=== PATIENT | female | born 1980 | race Caucasian/White ===

== ENCOUNTER 2017-10-08 10:53 | Outpatient (CLI) | payer OTHER ==
--- NOTE | 2017-10-08 11:11 | MMO ---
LEFT UNILATERAL DIAGNOSTIC MAMMOGRAM: HISTORY: Post biopsy clip placement evaluation. FINDINGS: Biopsy was performed by Dr. Williamson in his office and a clip was deployed. The clip is located in th e upper outer left breast. The mass itself is somewhat difficult to identify on this exam. IMPRESSION: Successful clip deployment. POS: [facility]
== END 2017-10-08 10:54 | disposition home or self-care (01) ==
LOC: MAMMO 10:53
PROVIDERS: ATTEND Specialist
DX: N63.20 Unspecified lump in the left breast, unspecified quadrant (principal)
CPT/HCPCS: G0206-LT

== ENCOUNTER 2017-10-21 07:22 | Day surgery (SDC) | payer SELFPAY ==
[2017-10-21] MEDS ORDERED: CEFAZOLIN/Water 2 GM/20 ML SYRINGE ONE (07:54)
[2017-10-21] MEDS ORDERED: Ketorolac Tromethamine 30 MG/ML VIAL ONE (07:54)
[2017-10-21 08:17] LABS: #Eosinphils 0.2 thou/uL (0.0-0.7); #Lymphocytes 1.9 thou/uL (1.20-3.40); #Monocytes 0.4 thou/uL (0.11-0.59); #Neutrophils 5.8 thou/uL (1.40-6.50); %Basophils 0.2 % (0.0-1.0); %Eosinophils 2.4 % (0.0-10.0); %Lymphocytes 22.4 % (21.0-51.0); %Monocytes 4.9 % (0.0-10.0); Hematocrit 37.8 % (36.0-47.0); Mean Platelet Volume 6.8 fL (7.4-10.4); Red Blood Cell (RBC) Count 4.36 mill/uL (4.20-5.40); White Blood Cell (WBC) Count 8.3 thou/uL (4.8-10.8)
[2017-10-21 08:36] LABS: Anion Gap 11 mmol/L (10-20); BUN (Urea Nitrogen) 13 mg/dL (7.0-18.7); Calc. Creatinine Clearance 0 mL/min (70-130); Calcium 9.4 mg/dL (7.8-10.44); Carbon Dioxide 20 mmol/L (22-29); Chloride 110 mmol/L (98-107); Estimated GFR-MDRD 88
[2017-10-21] MEDS ORDERED: Lidocaine 1% (PF) 30 ML VIAL ONE (08:54)
[2017-10-21] MEDS ORDERED: Bupivacaine/Epinephrine 0.25% 30 ML VIAL ONE (08:54)
[2017-10-21] MEDS ORDERED: Midazolam HCl 2 mg/2 ml Vial ONE (08:59)
[2017-10-21] MEDS ORDERED: Fentanyl 100 MCG/2 ML VIAL ONE (09:02)
[2017-10-21] MEDS ORDERED: Propofol 1,000 MG/100 ML VIAL IV ONE (09:02)
--- NOTE | 2017-10-21 12:26 | RAD ---
FRONTAL VIEW CHEST: Comparison: 08-18-16 Indication: Mediport placement evaluation. FINDINGS: Right sided chest port is present without evidence of post procedural pneumothorax. Tip of the cathet er overlies the region of SVC. Lungs are clear. Cardiac silhouette is accentuated with portable techn ique. IMPRESSION: Right chest port present, without obvious post procedure pneumothorax. POS: [facility]
--- NOTE | 2017-10-22 09:50 | OP ---
DATE OF PROCEDURE: 10/21/2017 PREOPERATIVE DIAGNOSIS: Left breast cancer. POSTOPERATIVE DIAGNOSIS: Left breast cancer. OPERATION PERFORMED: Placement of regular size power compatible right subclavian MediPort. SURGEON: Andrew Williamson M.D. ANESTHESIA: Total intravenous anesthesia with local using 0.25% Marcaine with epinephrine. INDICATIONS: The patient is a 37-year-old obese white female. She was recently diagnosed with a lar ge left breast cancer that appears to be metastatic to axillary lymph nodes. I have recommended Medi Port placement for chemotherapy administration. DESCRIPTION OF OPERATION: Informed consent was obtained, the patient taken to the operating room whe re total intravenous anesthesia was obtained with the patient in supine position. Right chest was pr epped with ChloraPrep, draped in sterile fashion. Local anesthetic was infiltrated and a large gauge needle was passed under the clavicle. Guidewire was passed through the needle and this was fluorosc opically confirmed to enter the superior vena cava. Additional local anesthetic was infiltrated. Th e subcutaneous pocket was dissected and introducer dilator was passed over the guidewire with fluoros copic guidance. Catheter was passed through the introducer and introducer removed in the usual peel- apart fashion. Catheter was trimmed to appropriate length such that the tip was at the atrial caval junction and the catheter was secured to the locking hub of the MediPort. The port was secured to th e pectoral fascia with 2 interrupted sutures of 3-0 Prolene. The wound was closed in layers with 3-0 and 4-0 Monocryl. Dermabond was placed externally. The port was accessed and then flushed with hep arinized saline. There were no complications. The patient tolerated the procedure well and was take n to recovery in stable condition. Post-procedure x-ray is documents good position of the port and c atheter.
== END 2017-10-21 11:12 | disposition home or self-care (01) ==
LOC: SDC 07:22
PROVIDERS: ATTEND Specialist
PROC: 0JH60WZ Insertion of Totally Implantable Vascular Access Device into Chest Subcutaneous Tissue and Fascia, Open Approach (ICD-10-PCS; principal; 2017-10-21)
DX: C50.912 Malignant neoplasm of unspecified site of left female breast (principal); J30.2 Other seasonal allergic rhinitis; I10 Essential (primary) hypertension; E07.9 Disorder of thyroid, unspecified; Z98.51 Tubal ligation status; Z90.49 Acquired absence of other specified parts of digestive tract; Z98.890 Other specified postprocedural states
CPT/HCPCS: 36415; 71010; 80048; 85025; 93005; 93010; C1788; J0131; J1642; J1885; J2001; J2250; J2704; J3010

== ENCOUNTER 2017-10-27 08:26 | Outpatient (CLI) | payer MEDICAID ==
--- NOTE | 2017-10-27 09:25 | CT ---
CT CHEST WITH IV CONTRAST CT ABDOMEN AND PELVIS WITH IV CONTRAST: Technique: Multiple axial tomograms were obtained through the chest, abdomen, and pelvis with IV enha ncement. Oral contrast was administered. History: Breast cancer. Comparison: CT angio chest 09-08-16 FINDINGS: CT CHEST: The lung adam are clear. No evidence of infiltrate. No evidence of pulmonary nodule. Mediastinum is unremarkable. No adenopathy. Asymmetric parenchymal opacity in the left breast is seen which probably relates to patient's history of lumpectomy and radiation. There is mild left breast skin thickening which may be post radiation. There is left axillary adenopathy noted. There is one axillary lymph node measuring up to 2.0 cm. The re are several other lymph nodes present with another measuring 1.2 cm. No evidence of right axillary adenopathy. Bony thorax appears unremarkable. No evidence of osseous metastasis. IMPRESSION: 1. Left axillary adenopathy. Skin thickening over the left breast may represent post radiation change . Left breast parenchymal asymmetric is probably post-operative. Recommend clinical correlation regar ding these left breast and axillary findings. 2. CT Chest otherwise unremarkable. CT ABDOMEN AND PELVIS: Liver, spleen, and pancreas unremarkable. Adrenal glands are normal. Kidneys are unremarkable. Stomac h, duodenum, and small bowel appear unremarkable. Appendix normal. Colon unremarkable. Nonspecific periaortic lymph nodes. There is a 1.0 cm lymph node to the left of the aorta in the mida bdomen and there are other tiny subcentimeter periaortic nodes. Images through the pelvis show unremarkable uterus and adnexa. Small left ovarian cyst measures appro ximately 1.6 cm. There is a right ovarian cyst measuring 2.2 cm. Osseous structures are unremarkable. IMPRESSION: 1. Small bilateral ovarian cysts. 2. Scattered small paraaortic lymph nodes are nonspecific. No evidence of adenopathy. POS: [facility]
--- NOTE | 2017-10-27 15:34 | NM ---
WHOLE BODY BONE SCAN: INDICATION: History of breast cancer. RADIOPHARMACUEITCAL: 33 mCi Technetium 99m MDP IV. FINDINGS: There is some mild degenerative activity involving the shoulders, sternoclavicular joints, angle of L ouis and feet. No suspicious radiotracer accumulation is seen to suggest the presence of osseous metastatic disease. IMPRESSION: No scintigraphic evidence of osteoblastic metastatic disease. POS: [facility]
== END 2017-10-27 08:27 | disposition home or self-care (01) ==
LOC: CT 08:26
PROVIDERS: ATTEND Internal Medicine Medical Oncology
DX: C50.412 Malignant neoplasm of upper-outer quadrant of left female breast (principal); N83.202 Unspecified ovarian cyst, left side; N83.201 Unspecified ovarian cyst, right side; R59.0 Localized enlarged lymph nodes
CPT/HCPCS: 71260; 74177; 78306; A9503

== ENCOUNTER 2017-11-03 13:44 | Outpatient (CLI) | payer MEDICAID | END 2017-11-03 13:45 | disposition home or self-care (01) | LOC: ULT 13:44 | PROVIDERS: ATTEND Internal Medicine Medical Oncology | DX: Z51.11 Encounter for antineoplastic chemotherapy (principal); C50.412 Malignant neoplasm of upper-outer quadrant of left female breast; I08.1 Rheumatic disorders of both mitral and tricuspid valves; Z79.899 Other long term (current) drug therapy | CPT/HCPCS: 93306 ==

== ENCOUNTER 2017-11-24 10:54 | Day surgery (SDC) | payer MEDICAID ==
[2017-11-24] MEDS ORDERED: Dexamethasone 10 MG in Sodium Chloride 0.9% 50 ML IVPB SCH (11:15)
[2017-11-24] MEDS ORDERED: Palonosetron HCl 0.25 MG in Sodium Chloride 0.9% 50 ML IVPB SCH (11:15)
[2017-11-24] MEDS ORDERED: SODIUM CHLORIDE 0.9% IVPB SCH (11:30)
[2017-11-24] MEDS ORDERED: DOXORUBICIN IVPB SCH (11:30)
[2017-11-24] MEDS ORDERED: SODIUM CHLORIDE 0.9% SLOW IVP SCH (11:30)
[2017-11-24] MEDS ORDERED: CYCLOPHOSPHAMIDE SLOW IVP SCH (11:30)
[2017-11-24] MEDS ORDERED: Pegfilgrastim 6 MG/0.6 ML Delivery Kit SQ SCH (11:30)
== END 2017-11-24 14:30 | disposition home or self-care (01) ==
LOC: ONC/OP 10:54
PROVIDERS: ATTEND Internal Medicine Medical Oncology
DX: Z51.11 Encounter for antineoplastic chemotherapy (principal); C50.412 Malignant neoplasm of upper-outer quadrant of left female breast; J30.2 Other seasonal allergic rhinitis; E07.9 Disorder of thyroid, unspecified; R03.0 Elevated blood-pressure reading, without diagnosis of hypertension; Z98.51 Tubal ligation status; Z90.49 Acquired absence of other specified parts of digestive tract; Z98.890 Other specified postprocedural states
CPT/HCPCS: 36415; 80053; 82248; 83615; 84100; 84550; 96367; 96372; 96377; 96413; 96417; J1100; J2469; J2505; J7050; J9000; J9070

== ENCOUNTER 2017-12-08 10:48 | Day surgery (SDC) | payer MEDICAID ==
[2017-12-08] MEDS ORDERED: SODIUM CHLORIDE IVPB SCH (11:00)
[2017-12-08] MEDS ORDERED: DOXORUBICIN IVPB SCH (11:00)
[2017-12-08] MEDS ORDERED: Palonosetron HCl 0.25 MG, Admixture Fee 1 EACH in Sodium Chloride 0.9% 50 ML IVPB SCH (11:00)
[2017-12-08] MEDS ORDERED: ADMIXTURE FEE IVPB SCH ×2 (11:00→11:15)
[2017-12-08] MEDS ORDERED: Dexamethasone 10 MG, Admixture Fee 1 EACH in Sodium Chloride 0.9% 50 ML IVPB SCH (11:00)
[2017-12-08] MEDS ORDERED: Sodium Chloride 0.9% 40 ML ONE (11:07)
[2017-12-08] MEDS ORDERED: [UNRECOGNIZED DRUG - OTHER] IVPB SCH (11:15)
[2017-12-08] MEDS ORDERED: Pegfilgrastim 6 MG/0.6 ML Delivery Kit SQ SCH (11:15)
[2017-12-08] MEDS ORDERED: CYCLOPHOSPHAMIDE IVPB SCH (11:15)
== END 2017-12-08 13:46 | disposition home or self-care (01) ==
LOC: ONC/OP 10:48
PROVIDERS: ATTEND Internal Medicine Medical Oncology
DX: Z51.11 Encounter for antineoplastic chemotherapy (principal); C50.412 Malignant neoplasm of upper-outer quadrant of left female breast; E78.5 Hyperlipidemia, unspecified; J45.909 Unspecified asthma, uncomplicated; Z90.49 Acquired absence of other specified parts of digestive tract
CPT/HCPCS: 36415; 80053; 82248; 83615; 84100; 84550; 96367; 96372; 96377; 96413; 96417; A4216; J1100; J1642; J2469; J2505; J7050; J9000; J9070

== ENCOUNTER 2017-12-22 10:44 | Day surgery (SDC) | payer OTHER ==
[2017-12-22] MEDS ORDERED: Sodium Chloride 0.9% 40 ML ONE (11:05)
[2017-12-22] MEDS ORDERED: [UNRECOGNIZED DRUG - OTHER] IVPB SCH (11:15)
[2017-12-22] MEDS ORDERED: Pegfilgrastim 6 MG/0.6 ML Delivery Kit SQ SCH (11:15)
[2017-12-22] MEDS ORDERED: PALONOSETRON HCL 0.05 MG/ML 5 ML VIAL IVP SCH (11:15)
[2017-12-22] MEDS ORDERED: DOXORUBICIN IVPB SCH (11:15)
[2017-12-22] MEDS ORDERED: CYCLOPHOSPHAMIDE IVPB SCH (11:15)
[2017-12-22] MEDS ORDERED: SODIUM CHLORIDE IVPB SCH (11:15)
[2017-12-22] MEDS ORDERED: ADMIXTURE FEE IVPB SCH ×2 (11:15)
[2017-12-22] MEDS ORDERED: Dexamethasone 4 mg/ml Vial SLOW IVP SCH (11:15)
== END 2017-12-22 13:42 | disposition home or self-care (01) ==
LOC: ONC/OP 10:44
PROVIDERS: ATTEND Internal Medicine Medical Oncology
DX: Z51.11 Encounter for antineoplastic chemotherapy (principal); C50.412 Malignant neoplasm of upper-outer quadrant of left female breast; E78.5 Hyperlipidemia, unspecified; J45.909 Unspecified asthma, uncomplicated; Z90.49 Acquired absence of other specified parts of digestive tract
CPT/HCPCS: 36415; 80053; 82248; 83615; 84100; 84550; 96375; 96377; 96413; 96417; A4216; J1100; J1642; J2469; J2505; J7050; J9000; J9070

== ENCOUNTER 2018-01-05 10:54 | Day surgery (SDC) | payer OTHER ==
[2018-01-05] MEDS ORDERED: Dexamethasone 4 mg/ml Vial SLOW IVP SCH (11:15)
[2018-01-05] MEDS ORDERED: Pegfilgrastim 6 MG/0.6 ML Delivery Kit SQ SCH (11:15)
[2018-01-05] MEDS ORDERED: PALONOSETRON HCL 0.05 MG/ML 5 ML VIAL IVP SCH (11:15)
[2018-01-05] MEDS ORDERED: Sodium Chloride 0.9% 50 ML ONE (11:19)
[2018-01-05] MEDS ORDERED: SODIUM CHLORIDE IVPB SCH (11:45)
[2018-01-05] MEDS ORDERED: [UNRECOGNIZED DRUG - OTHER] IVPB SCH (11:45)
[2018-01-05] MEDS ORDERED: CYCLOPHOSPHAMIDE IVPB SCH (11:45)
[2018-01-05] MEDS ORDERED: ADMIXTURE FEE IVPB SCH ×2 (11:45)
[2018-01-05] MEDS ORDERED: DOXORUBICIN IVPB SCH (11:45)
[2018-01-05 12:34] VITALS: BP 103/59; TEMP 98.6
[2018-01-05] MEDS ORDERED: Activase 2 MG VIAL CATH SCH (12:45)
[2018-01-05] MEDS ORDERED: Sterile Water 10 ML VIAL IVP SCH (12:45)
== END 2018-01-05 15:08 | disposition home or self-care (01) ==
LOC: ONC/OP 10:54
PROVIDERS: ATTEND Internal Medicine Medical Oncology
DX: Z51.11 Encounter for antineoplastic chemotherapy (principal); C50.412 Malignant neoplasm of upper-outer quadrant of left female breast; E78.5 Hyperlipidemia, unspecified; J45.909 Unspecified asthma, uncomplicated; Z79.899 Other long term (current) drug therapy
CPT/HCPCS: 96375; 96377; 96413; 96417; A4216; J1100; J1642; J2469; J2505; J2997; J7050; J9000; J9070

== ENCOUNTER 2018-01-19 11:38 | Day surgery (SDC) | payer OTHER ==
[2018-01-19] MEDS ORDERED: Sodium Chloride 0.9% 40 ML ONE (11:44)
[2018-01-19] MEDS ORDERED: PACLITAXEL IVPB SCH (11:45)
[2018-01-19] MEDS ORDERED: SODIUM CHLORIDE 0.9% IVPB SCH (11:45)
[2018-01-19] MEDS ORDERED: Dexamethasone 10 MG/ML VIAL SLOW IVP SCH ×2 (11:45→12:45)
[2018-01-19] MEDS ORDERED: diphenhydrAMINE 50 MG/ML VIAL ONE (12:44)
[2018-01-19] MEDS ORDERED: Dexamethasone 4 mg/ml Vial ONE (12:44)
[2018-01-19] MEDS ORDERED: diphenhydrAMINE 50 MG/ML VIAL IVP SCH (12:45)
[2018-01-19] MEDS ORDERED: Famotidine/PF 20 mg/2ml Vial SLOW IVP SCH (12:45)
== END 2018-01-19 16:37 | disposition home or self-care (01) ==
LOC: ONC/OP 11:38
PROVIDERS: ATTEND Internal Medicine Medical Oncology
DX: Z51.11 Encounter for antineoplastic chemotherapy (principal); C50.412 Malignant neoplasm of upper-outer quadrant of left female breast; E78.5 Hyperlipidemia, unspecified; J45.909 Unspecified asthma, uncomplicated
CPT/HCPCS: 96375; 96413; 99212; A4216; G0463; J1100; J1200; J1642; J7050; J9267; S0028

== ENCOUNTER 2018-01-26 10:35 | Day surgery (SDC) | payer OTHER ==
[2018-01-26] MEDS ORDERED: SODIUM CHLORIDE 0.9% IVPB SCH (11:00)
[2018-01-26] MEDS ORDERED: diphenhydrAMINE 50 MG/ML VIAL IVP SCH (11:00)
[2018-01-26] MEDS ORDERED: Dexamethasone 10 MG/ML VIAL SLOW IVP SCH (11:00)
[2018-01-26] MEDS ORDERED: Famotidine 40 MG/4 ML VIAL SLOW IVP SCH (11:00)
[2018-01-26] MEDS ORDERED: PACLITAXEL IVPB SCH (11:00)
[2018-01-26 11:01] VITALS: BP 112/74; TEMP 97.9
[2018-01-26] MEDS ORDERED: Sodium Chloride 0.9% 50 ML ONE (11:06)
== END 2018-01-26 14:52 | disposition home or self-care (01) ==
LOC: ONC/OP 10:35
PROVIDERS: ATTEND Internal Medicine Medical Oncology
DX: Z51.11 Encounter for antineoplastic chemotherapy (principal); C50.412 Malignant neoplasm of upper-outer quadrant of left female breast; E78.5 Hyperlipidemia, unspecified; J45.909 Unspecified asthma, uncomplicated; Z79.899 Other long term (current) drug therapy; Z88.8 Allergy status to other drugs, medicaments and biological substances; Z98.890 Other specified postprocedural states
CPT/HCPCS: 96375; 96413; A4216; J1100; J1200; J1642; J7050; J9267

== ENCOUNTER 2018-02-02 09:39 | Day surgery (SDC) | payer OTHER ==
[2018-02-02] MEDS ORDERED: Sodium Chloride 0.9% 60 ML ONE (09:58)
[2018-02-02] MEDS ORDERED: PACLITAXEL IVPB SCH (10:00)
[2018-02-02] MEDS ORDERED: SODIUM CHLORIDE IVPB SCH (10:00)
[2018-02-02] MEDS ORDERED: diphenhydrAMINE 50 MG/ML VIAL IVP SCH (10:00)
[2018-02-02] MEDS ORDERED: Famotidine/PF 20 mg/2ml Vial SLOW IVP SCH (10:00)
[2018-02-02] MEDS ORDERED: ADMIXTURE FEE IVPB SCH (10:00)
[2018-02-02] MEDS ORDERED: Dexamethasone 10 MG/ML VIAL SLOW IVP SCH (10:00)
[2018-02-02 10:09] VITALS: BP 124/69; TEMP 97.7
== END 2018-02-02 11:51 | disposition home or self-care (01) ==
LOC: ONC/OP 09:39
PROVIDERS: ATTEND Internal Medicine Medical Oncology
DX: Z51.11 Encounter for antineoplastic chemotherapy (principal); C50.412 Malignant neoplasm of upper-outer quadrant of left female breast; E78.5 Hyperlipidemia, unspecified; J45.909 Unspecified asthma, uncomplicated; Z88.8 Allergy status to other drugs, medicaments and biological substances; Z79.899 Other long term (current) drug therapy; Z90.49 Acquired absence of other specified parts of digestive tract
CPT/HCPCS: 96375; 96413; A4216; J1100; J1200; J1642; J7050; J9267; S0028

== ENCOUNTER 2018-02-06 09:13 | Emergency (ER) | payer OTHER ==
[2018-02-06 10:33] LABS: #Eosinphils 0.1 thou/uL (0.0-0.7); #Lymphocytes 0.9 thou/uL (1.20-3.40); #Monocytes 0.2 thou/uL (0.11-0.59); #Neutrophils 3.3 thou/uL (1.40-6.50); %Basophils 0.2 % (0.0-1.0); %Eosinophils 2.1 % (0.0-10.0); %Lymphocytes 19.8 % (21.0-51.0); %Monocytes 3.9 % (0.0-10.0); Hemoglobin 10.2 g/dL (12.0-16.0); Mean Corpuscular HGB CONC 34.6 g/dL (32.0-36.0); Mean Corpuscular Hemoglobin 30.4 pg (27.0-31.0); Mean Corpuscular Volume 87.8 fl (81.0-99.0); Mean Platelet Volume 6.7 fL (7.4-10.4); Platelet Count 349 thou/uL (130-400); RBC Distribution Width 16.2 % (11.5-14.5); Red Blood Cell (RBC) Count 3.35 mill/uL (4.20-5.40); White Blood Cell (WBC) Count 4.4 thou/uL (4.8-10.8)
[2018-02-06 10:48] LABS: ALT (SGPT) 28 U/L (8-55); AST (SGOT) 17 U/L (5-34); Albumin 3.9 g/dL (3.5-5.0); Alkaline Phosphatase 54 U/L (40-150); Anion Gap 12 mmol/L (10-20); BUN (Urea Nitrogen) 9 mg/dL (7.0-18.7); Bilirubin, Total 0.6 mg/dL (0.2-1.2); Calc. Creatinine Clearance 0 mL/min (70-130); Calcium 9.1 mg/dL (7.8-10.44); Carbon Dioxide 21 mmol/L (22-29); Chloride 109 mmol/L (98-107); Estimated GFR-MDRD Greater than 90; Globulin 2.8 g/dL (2.4-3.5); Glucose 107 mg/dL (70-105); Potassium 3.7 mmol/L (3.5-5.1); Protein, Total 6.7 g/dL (6.0-8.3); Sodium 138 mmol/L (136-145)
== END 2018-02-06 11:41 | disposition home or self-care (01) ==
LOC: ERS 09:13
DX: H05.011 Cellulitis of right orbit (principal); E03.9 Hypothyroidism, unspecified; J45.909 Unspecified asthma, uncomplicated; I10 Essential (primary) hypertension; Z79.899 Other long term (current) drug therapy
CPT/HCPCS: 36415; 80053; 85025; 99283

== ENCOUNTER 2018-02-10 09:51 | Day surgery (SDC) | payer OTHER ==
[2018-02-10] MEDS ORDERED: PACLITAXEL IVPB SCH (10:15)
[2018-02-10] MEDS ORDERED: Famotidine/PF 20 mg/2ml Vial SLOW IVP SCH (10:15)
[2018-02-10] MEDS ORDERED: ADMIXTURE FEE IVPB SCH (10:15)
[2018-02-10] MEDS ORDERED: diphenhydrAMINE 50 MG/ML VIAL IVP SCH (10:15)
[2018-02-10] MEDS ORDERED: SODIUM CHLORIDE IVPB SCH (10:15)
[2018-02-10] MEDS ORDERED: Dexamethasone 10 MG/ML VIAL SLOW IVP SCH (10:15)
[2018-02-10] MEDS ORDERED: Famotidine 20 MG TAB PO SCH (11:00)
== END 2018-02-10 12:21 | disposition home or self-care (01) ==
LOC: ONC/OP 09:51
PROVIDERS: ATTEND Internal Medicine Medical Oncology
DX: Z51.11 Encounter for antineoplastic chemotherapy (principal); C50.412 Malignant neoplasm of upper-outer quadrant of left female breast; E78.5 Hyperlipidemia, unspecified; J45.909 Unspecified asthma, uncomplicated; Z79.899 Other long term (current) drug therapy; Z88.8 Allergy status to other drugs, medicaments and biological substances
CPT/HCPCS: 96375; 96413; J1100; J1200; J7050; J9267; S0028

== ENCOUNTER 2018-02-16 10:26 | Day surgery (SDC) | payer OTHER ==
[2018-02-16] MEDS ORDERED: Sodium Chloride 0.9% 40 ML ONE (10:36)
[2018-02-16] MEDS ORDERED: ADMIXTURE FEE IVPB SCH (10:45)
[2018-02-16] MEDS ORDERED: Dexamethasone 10 MG/ML VIAL IVPB SCH (10:45)
[2018-02-16] MEDS ORDERED: PACLITAXEL IVPB SCH (10:45)
[2018-02-16] MEDS ORDERED: SODIUM CHLORIDE IVPB SCH (10:45)
[2018-02-16] MEDS ORDERED: diphenhydrAMINE 50 MG/ML VIAL IVP SCH (10:45)
[2018-02-16] MEDS ORDERED: Famotidine/PF 20 mg/2ml Vial IVPB SCH (10:45)
[2018-02-16] MEDS ORDERED: Famotidine 20 MG TAB PO SCH (11:00)
[2018-02-16] MEDS ORDERED: Dexamethasone 10 MG/ML VIAL SLOW IVP SCH (11:00)
[2018-02-16 11:17] VITALS: BP 116/69; TEMP 98.2
== END 2018-02-16 12:41 | disposition home or self-care (01) ==
LOC: ONC/OP 10:26
PROVIDERS: ATTEND Internal Medicine Medical Oncology
DX: Z51.11 Encounter for antineoplastic chemotherapy (principal); C50.412 Malignant neoplasm of upper-outer quadrant of left female breast; E78.5 Hyperlipidemia, unspecified; J45.909 Unspecified asthma, uncomplicated; Z88.8 Allergy status to other drugs, medicaments and biological substances; Z98.890 Other specified postprocedural states
CPT/HCPCS: 36415; 80053; 82248; 83615; 84100; 84550; 96375; 96413; 96417; A4216; J1100; J1200; J1642; J7050; J9267

== ENCOUNTER 2018-02-23 10:14 | Day surgery (SDC) | payer OTHER ==
[2018-02-23] MEDS ORDERED: Sodium Chloride 0.9% 50 ML ONE (10:22)
[2018-02-23 10:28] VITALS: BP 127/70; TEMP 98.1
[2018-02-23] MEDS ORDERED: Dexamethasone 10 MG/ML VIAL SLOW IVP SCH (10:30)
[2018-02-23] MEDS ORDERED: PACLITAXEL IVPB SCH (10:30)
[2018-02-23] MEDS ORDERED: SODIUM CHLORIDE IVPB SCH (10:30)
[2018-02-23] MEDS ORDERED: diphenhydrAMINE 50 MG/ML VIAL IVP SCH (10:30)
[2018-02-23] MEDS ORDERED: Famotidine 20 MG TAB PO SCH (10:30)
[2018-02-23] MEDS ORDERED: ADMIXTURE FEE IVPB SCH (10:30)
== END 2018-02-23 12:08 | disposition home or self-care (01) ==
LOC: ONC/OP 10:14
PROVIDERS: ATTEND Internal Medicine Medical Oncology
DX: Z51.11 Encounter for antineoplastic chemotherapy (principal); C50.412 Malignant neoplasm of upper-outer quadrant of left female breast; E78.5 Hyperlipidemia, unspecified; J45.909 Unspecified asthma, uncomplicated; Z79.899 Other long term (current) drug therapy; Z88.8 Allergy status to other drugs, medicaments and biological substances; Z98.890 Other specified postprocedural states
CPT/HCPCS: 96375; 96413; A4216; J1100; J1200; J1642; J7050; J9267

== ENCOUNTER 2018-03-02 10:34 | Day surgery (SDC) | payer OTHER ==
[2018-03-02] MEDS ORDERED: Sodium Chloride 0.9% 50 ML ONE (10:40)
[2018-03-02] MEDS ORDERED: diphenhydrAMINE 50 MG/ML VIAL IVP SCH (11:00)
[2018-03-02] MEDS ORDERED: Dexamethasone 10 MG/ML VIAL SLOW IVP SCH (11:00)
[2018-03-02] MEDS ORDERED: Famotidine 20 MG TAB PO SCH (11:00)
[2018-03-02 11:30] VITALS: BP 113/64; TEMP 97.8
[2018-03-02] MEDS ORDERED: SODIUM CHLORIDE IVPB SCH (11:30)
[2018-03-02] MEDS ORDERED: ADMIXTURE FEE IVPB SCH (11:30)
[2018-03-02] MEDS ORDERED: PACLITAXEL IVPB SCH (11:30)
== END 2018-03-02 14:04 | disposition home or self-care (01) ==
LOC: ONC/OP 10:34
PROVIDERS: ATTEND Internal Medicine Medical Oncology
DX: Z51.11 Encounter for antineoplastic chemotherapy (principal); C50.412 Malignant neoplasm of upper-outer quadrant of left female breast; E78.5 Hyperlipidemia, unspecified; J45.909 Unspecified asthma, uncomplicated; Z79.899 Other long term (current) drug therapy; Z98.890 Other specified postprocedural states
CPT/HCPCS: 96375; 96413; A4216; J1100; J1200; J1642; J7050; J9267

== ENCOUNTER 2018-03-09 10:51 | Day surgery (SDC) | payer OTHER ==
[2018-03-09] MEDS ORDERED: Sodium Chloride 0.9% 50 ML ONE (10:59)
[2018-03-09] MEDS ORDERED: Famotidine 20 MG TAB PO SCH (11:00)
[2018-03-09] MEDS ORDERED: diphenhydrAMINE 50 MG/ML VIAL IVP SCH (11:00)
[2018-03-09] MEDS ORDERED: Dexamethasone 4 mg/ml Vial SLOW IVP SCH (11:00)
[2018-03-09 11:07] VITALS: BP 112/69; TEMP 98.1
[2018-03-09] MEDS ORDERED: SODIUM CHLORIDE 0.9% IVPB SCH (11:15)
[2018-03-09] MEDS ORDERED: Dexamethasone 10 MG/ML VIAL SLOW IVP SCH (11:15)
[2018-03-09] MEDS ORDERED: PACLITAXEL IVPB SCH (11:15)
== END 2018-03-09 13:04 | disposition home or self-care (01) ==
LOC: ONC/OP 10:51
PROVIDERS: ATTEND Internal Medicine Medical Oncology
DX: Z51.11 Encounter for antineoplastic chemotherapy (principal); C50.412 Malignant neoplasm of upper-outer quadrant of left female breast; J45.909 Unspecified asthma, uncomplicated; E78.5 Hyperlipidemia, unspecified; Z88.8 Allergy status to other drugs, medicaments and biological substances
CPT/HCPCS: 96375; 96413; A4216; J1100; J1200; J1642; J7050; J9267

== ENCOUNTER 2018-03-16 09:21 | Day surgery (SDC) | payer OTHER ==
[2018-03-16] MEDS ORDERED: SODIUM CHLORIDE IVPB SCH (09:45)
[2018-03-16] MEDS ORDERED: Dexamethasone 10 MG/ML VIAL SLOW IVP SCH (09:45)
[2018-03-16] MEDS ORDERED: PACLITAXEL IVPB SCH (09:45)
[2018-03-16] MEDS ORDERED: Famotidine 40 MG/4 ML VIAL SLOW IVP SCH (09:45)
[2018-03-16] MEDS ORDERED: ADMIXTURE FEE IVPB SCH (09:45)
[2018-03-16] MEDS ORDERED: diphenhydrAMINE 50 MG/ML VIAL IVP SCH (09:45)
[2018-03-16] MEDS ORDERED: Sodium Chloride 0.9% 50 ML ONE (09:55)
[2018-03-16] MEDS ORDERED: Famotidine 20 MG TAB PO SCH (10:10)
[2018-03-16 10:38] VITALS: BP 130/59; TEMP 98.3
== END 2018-03-16 12:48 | disposition home or self-care (01) ==
LOC: ONC/OP 09:21
PROVIDERS: ATTEND Internal Medicine Medical Oncology
DX: Z51.11 Encounter for antineoplastic chemotherapy (principal); C50.412 Malignant neoplasm of upper-outer quadrant of left female breast; E78.5 Hyperlipidemia, unspecified; J45.909 Unspecified asthma, uncomplicated; Z88.8 Allergy status to other drugs, medicaments and biological substances
CPT/HCPCS: 96375; 96413; A4216; J1100; J1200; J7050; J9267

== ENCOUNTER 2018-03-23 10:13 | Day surgery (SDC) | payer OTHER ==
[2018-03-23] MEDS ORDERED: Sodium Chloride 0.9% 40 ML ONE (10:25)
[2018-03-23] MEDS ORDERED: Dexamethasone 10 MG/ML VIAL SLOW IVP SCH (10:30)
[2018-03-23] MEDS ORDERED: Famotidine/PF 20 mg/2ml Vial SLOW IVP SCH (10:30)
[2018-03-23] MEDS ORDERED: PACLITAXEL IVPB SCH (10:30)
[2018-03-23] MEDS ORDERED: SODIUM CHLORIDE IVPB SCH (10:30)
[2018-03-23] MEDS ORDERED: ADMIXTURE FEE IVPB SCH (10:30)
[2018-03-23] MEDS ORDERED: diphenhydrAMINE 50 MG/ML VIAL IVP SCH (10:30)
[2018-03-23] MEDS ORDERED: Famotidine 20 MG TAB PO SCH (11:00)
[2018-03-23 13:21] VITALS: BP 136/75; TEMP 98.2
== END 2018-03-23 13:30 | disposition home or self-care (01) ==
LOC: ONC/OP 10:13
PROVIDERS: ATTEND Internal Medicine Medical Oncology
DX: Z51.11 Encounter for antineoplastic chemotherapy (principal); C50.412 Malignant neoplasm of upper-outer quadrant of left female breast; J45.909 Unspecified asthma, uncomplicated; E78.5 Hyperlipidemia, unspecified; Z79.899 Other long term (current) drug therapy; Z88.8 Allergy status to other drugs, medicaments and biological substances
CPT/HCPCS: 96375; 96413; A4216; J1100; J1200; J1642; J7050; J9267

== ENCOUNTER 2018-03-30 10:13 | Day surgery (SDC) | payer OTHER ==
[2018-03-30] MEDS ORDERED: Dexamethasone 10 MG/ML VIAL SLOW IVP SCH (10:30)
[2018-03-30] MEDS ORDERED: diphenhydrAMINE 50 MG/ML VIAL IVP SCH (10:30)
[2018-03-30] MEDS ORDERED: Famotidine 20 MG TAB PO SCH (10:30)
[2018-03-30] MEDS ORDERED: SODIUM CHLORIDE IVPB SCH (10:45)
[2018-03-30] MEDS ORDERED: PACLITAXEL IVPB SCH (10:45)
[2018-03-30] MEDS ORDERED: ADMIXTURE FEE IVPB SCH (10:45)
[2018-03-30] MEDS ORDERED: Sodium Chloride 0.9% 40 ML ONE (11:06)
== END 2018-03-30 13:25 | disposition home or self-care (01) ==
LOC: ONC/OP 10:13
PROVIDERS: ATTEND Internal Medicine Medical Oncology
DX: Z51.11 Encounter for antineoplastic chemotherapy (principal); C50.412 Malignant neoplasm of upper-outer quadrant of left female breast; E78.5 Hyperlipidemia, unspecified; J45.909 Unspecified asthma, uncomplicated
CPT/HCPCS: 96375; 96413; A4216; J1100; J1200; J1642; J7050; J9267

== ENCOUNTER 2018-04-06 09:23 | Day surgery (SDC) | payer OTHER ==
[2018-04-06] MEDS ORDERED: DEXAMETHASONE IVPB SCH (09:45)
[2018-04-06] MEDS ORDERED: Dexamethasone 10 MG/ML VIAL SLOW IVP SCH (09:45)
[2018-04-06] MEDS ORDERED: SODIUM CHLORIDE 0.9% IVPB SCH ×2 (09:45)
[2018-04-06] MEDS ORDERED: FAMOTIDINE IVPB SCH (09:45)
[2018-04-06] MEDS ORDERED: Famotidine 20 MG TAB PO SCH (09:45)
[2018-04-06] MEDS ORDERED: diphenhydrAMINE 50 MG/ML VIAL IVP SCH (09:45)
[2018-04-06] MEDS ORDERED: PACLITAXEL IVPB SCH (09:45)
[2018-04-06] MEDS ORDERED: diphenhydrAMINE 50 MG in Sodium Chloride 0.9% 50 ML IVPB SCH (09:45)
[2018-04-06] MEDS ORDERED: Sodium Chloride 0.9% 50 ML ONE (10:08)
[2018-04-06 10:34] VITALS: BP 105/63; TEMP 97.5
== END 2018-04-06 13:52 | disposition home or self-care (01) ==
LOC: ONC/OP 09:23
PROVIDERS: ATTEND Internal Medicine Medical Oncology
DX: Z51.11 Encounter for antineoplastic chemotherapy (principal); C50.412 Malignant neoplasm of upper-outer quadrant of left female breast; E78.5 Hyperlipidemia, unspecified; J45.909 Unspecified asthma, uncomplicated
CPT/HCPCS: 96375; 96413; A4216; J1100; J1200; J1642; J7050; J9267; S0028

== ENCOUNTER 2018-04-08 10:12 | Outpatient (CLI) | payer OTHER ==
[2018-04-08 11:33] LABS: Anion Gap 12 mmol/L (10-20); Anisocytosis SLIGHT = 6-15 cells (100X) (0-5/hpf); BUN (Urea Nitrogen) 15 mg/dL (7.0-18.7); Calc. Creatinine Clearance 0 mL/min (70-130); Calcium 9.2 mg/dL (7.8-10.44); Carbon Dioxide 22 mmol/L (22-29); Chloride 111 mmol/L (98-107); Estimated GFR-MDRD 78; Glucose 81 mg/dL (70-105); Hemoglobin 10.4 g/dL (12.0-16.0); Lymphocytes 22 % (21-51); MDiff Complete? YES; Mean Corpuscular HGB CONC 34.3 g/dL (32.0-36.0); Mean Corpuscular Hemoglobin 31.6 pg (27.0-31.0); Mean Corpuscular Volume 92.2 fl (81.0-99.0); Mean Platelet Volume 7.8 fL (7.4-10.4); Monocytes 4 % (0-10); Neutrophil 73 % (42-75); PLT Morphology Comment Appears Adequate; Platelet Clumps SLIGHT; Platelet Count 326 thou/uL (130-400); Potassium 3.6 mmol/L (3.5-5.1); RBC Distribution Width 15.5 % (11.5-14.5); Sodium 141 mmol/L (136-145); White Blood Cell (WBC) Count 3.7 thou/uL (4.8-10.8)
== END 2018-04-08 10:13 | disposition home or self-care (01) ==
LOC: LABBT 10:12
PROVIDERS: ATTEND Specialist
DX: Z01.812 Encounter for preprocedural laboratory examination (principal); C50.912 Malignant neoplasm of unspecified site of left female breast
CPT/HCPCS: 80048; 85025

== ENCOUNTER 2018-04-21 06:10 | Inpatient (IN) | payer OTHER ==
[2018-04-08 10:40] VITALS: BMI 46.6
[2018-04-21] MEDS ORDERED: CEFAZOLIN/Water 2 GM/20 ML SYRINGE ONE (11:21)
[2018-04-21] MEDS ORDERED: Ketorolac Tromethamine 30 MG/ML VIAL ONE (11:22)
[2018-04-21] MEDS ORDERED: Midazolam HCl 2 mg/2 ml Vial ONE ×2 (11:34→11:47)
[2018-04-21] MEDS ORDERED: Fentanyl 250 MCG/5 ML VIAL ONE (11:47)
[2018-04-21] MEDS ORDERED: Isosulfan Blue 50 MG/5 ML VIAL ONE (11:59)
--- NOTE | 2018-04-21 12:08 | NM ---
LEFT BREAST LYMPHOSCINTIGRAPHY; Date: 04/21/18 HISTORY: Malignant neoplasm of unspecified site of the left female breast. RADIOPHARMACEUTICAL: 400 microcuries technetium-99m filtered sulfur colloid injected in the left periareolar region in div ided doses. FINDINGS: No visualization of lymph nodes is seen in the left axilla, right axilla, or either internal mammary chains. Imaging was performed for 2 hours. IMPRESSION: Nonvisualization of sentinel lymph nodes. POS: [facility]
[2018-04-21] MEDS ORDERED: Dexamethasone 20 MG/5 ML VIAL ONE (14:00)
[2018-04-21] MEDS ORDERED: PROPOFOL 200 MG/20 ML VIAL ONE (14:00)
[2018-04-21] MEDS ORDERED: Lidocaine 1% PF 5 ML VIAL ONE (14:00)
[2018-04-21] MEDS ORDERED: Fentanyl 100 MCG/2 ML VIAL ONE ×2 (14:45→16:13)
[2018-04-21] MEDS ORDERED: HYDROmorphone 0.5 MG/0.5 ML SYRINGE ONE (14:45)
[2018-04-21] MEDS ORDERED: Promethazine HCl 25 MG/ML VIAL SLOW IVP PRN (15:24)
[2018-04-21] MEDS ORDERED: Ondansetron HCl/PF 4 MG/2 ML Vial IVP PRN ×2 (15:24→16:45)
[2018-04-21] MEDS ORDERED: Promethazine HCl 25 MG/ML VIAL IM PRN ×2 (15:24→16:45)
[2018-04-21] MEDS ORDERED: HYDROcodone/Acetaminophen 7.5/325 mg Tablet PO PRN (16:45)
[2018-04-21] MEDS ORDERED: Dextrose 50% Abboject 50 ML SYRINGE SLOW IVP PRN (16:45)
[2018-04-21] MEDS ORDERED: hydrALAZINE 20 MG/ML VIAL SLOW IVP PRN (16:45)
[2018-04-21] MEDS ORDERED: Dextrose 5% in Water 1,000 ML IV PRN (16:45)
[2018-04-21] MEDS: Lactated Ringer's 1,000 ML IV SCH (17:28)
[2018-04-21] MEDS: Famotidine 20 MG TAB PO SCH (21:51)
[2018-04-21] MEDS: HYDROcodone/Acetaminophen 7.5/325 mg Tablet PO PRN (21:55)
[2018-04-22 04:19] LABS: #Lymphocytes 0.7 thou/uL (1.20-3.40); #Monocytes 0.4 thou/uL (0.11-0.59); #Neutrophils 7.4 thou/uL (1.40-6.50); %Basophils 0.1 % (0.0-1.0); %Eosinophils 0.4 % (0.0-10.0); %Lymphocytes 8.1 % (21.0-51.0); %Monocytes 4.4 % (0.0-10.0); Hemoglobin 9.6 g/dL (12.0-16.0); Mean Corpuscular HGB CONC 34.2 g/dL (32.0-36.0); Mean Corpuscular Hemoglobin 30.3 pg (27.0-31.0); Mean Corpuscular Volume 88.5 fl (81.0-99.0); Mean Platelet Volume 7.3 fL (7.4-10.4); Platelet Count 323 thou/uL (130-400); RBC Distribution Width 15.3 % (11.5-14.5); Red Blood Cell (RBC) Count 3.16 mill/uL (4.20-5.40); White Blood Cell (WBC) Count 8.5 thou/uL (4.8-10.8)
[2018-04-22] MEDS: Lactated Ringer's 1,000 ML IV SCH (05:31)
[2018-04-22] MEDS: HYDROcodone/Acetaminophen 7.5/325 mg Tablet PO PRN (05:45)
[2018-04-22] MEDS: Famotidine 20 MG TAB PO SCH (10:33)
[2018-04-22 11:15] VITALS: BP 119/57; TEMP 98.4
== END 2018-04-22 11:20 | disposition home or self-care (01) | DRG 583 ==
LOC: SDC 06:10 → SURG B 16:05
PROVIDERS: ADMIT Specialist; ATTEND Specialist
PROC: 0HTU0ZZ Resection of Left Breast, Open Approach (ICD-10-PCS; principal; 2018-04-21)
PROC: 07D63ZX Extraction of Left Axillary Lymphatic, Percutaneous Approach, Diagnostic (ICD-10-PCS; 2018-04-21)
DX: C50.912 Malignant neoplasm of unspecified site of left female breast (principal); I10 Essential (primary) hypertension; J30.2 Other seasonal allergic rhinitis
CPT/HCPCS: 36415; 78195; 85025; A9541; J0131; J1100; J1170; J1885; J2001; J2250; J2270; J2405; J2550; J2704; J3010; Q9968

== ENCOUNTER 2018-04-28 22:14 | Inpatient (IN) | payer OTHER ==
[2018-04-28 22:48] LABS: #Eosinphils 0.4 thou/uL (0.0-0.7); #Lymphocytes 1.7 thou/uL (1.20-3.40); #Monocytes 0.7 thou/uL (0.11-0.59); #Neutrophils 9.1 thou/uL (1.40-6.50); %Basophils 0.3 % (0.0-1.0); %Eosinophils 3.1 % (0.0-10.0); %Lymphocytes 13.9 % (21.0-51.0); %Monocytes 6.2 % (0.0-10.0); %Neutrophils 76.5 % (42.0-75.0); Hemoglobin 9.9 g/dL (12.0-16.0); Mean Corpuscular HGB CONC 34.2 g/dL (32.0-36.0); Mean Corpuscular Hemoglobin 29.9 pg (27.0-31.0); Mean Corpuscular Volume 87.3 fL (78.0-98.0); Mean Platelet Volume 7.4 fL (7.4-10.4); Platelet Count 349 thou/uL (130-400); RBC Distribution Width 14.9 % (11.5-14.5); Red Blood Cell (RBC) Count 3.31 mill/uL (4.20-5.40); White Blood Cell (WBC) Count 11.9 thou/uL (4.8-10.8)
[2018-04-28 23:12] LABS: ALT (SGPT) 20 U/L (8-55); AST (SGOT) 17 U/L (5-34); Albumin 3.6 g/dL (3.5-5.0); Alkaline Phosphatase 61 U/L (40-150); Anion Gap 14 mmol/L (10-20); BUN (Urea Nitrogen) 10 mg/dL (7.0-18.7); Bilirubin, Total 0.5 mg/dL (0.2-1.2); Calc. Creatinine Clearance 0 mL/min (70-130); Carbon Dioxide 22 mmol/L (22-29); Chloride 105 mmol/L (98-107); Estimated GFR-MDRD 79; Globulin 3.3 g/dL (2.4-3.5); Glucose 118 mg/dL (70-105); Potassium 3.9 mmol/L (3.5-5.1); Protein, Total 6.9 g/dL (6.0-8.3); Sodium 137 mmol/L (136-145)
[2018-04-29] MEDS ORDERED: Acetaminophen 500 MG TAB ONE (00:15)
[2018-04-29] MEDS ORDERED: Piperacillin/Tazobactam 4.5 GM VIAL ONE (00:22)
[2018-04-29] MEDS ORDERED: Ondansetron ODT 4 MG TAB SL PRN (02:07)
[2018-04-29] MEDS ORDERED: Ondansetron HCl/PF 4 MG/2 ML Vial IVP PRN (02:07)
[2018-04-29] MEDS: Sodium Chloride 0.9% 1,000 ML IV SCH ×2 (02:57→12:42)
[2018-04-29 03:31] VITALS: BMI 45.2
[2018-04-29] MEDS: Piperacillin/Tazobactam 4.5 GM in Sodium Chloride 0.9% 100 ML IVPB SCH ×2 (05:44→12:43)
--- NOTE | 2018-04-29 12:13 | CT ---
CT CHEST WITH IV CONTRAST: Date: 04/29/18 HISTORY: Mastectomy site infection. Left mastectomy performed on 04/21/18. Breast cancer. FINDINGS: Comparison made with the chest CT of 10/27/17. Interval changes of left-sided mastectomy are present. There are inflammatory changes in the left ant erior chest wall and axilla. Surgical clips are present in the left axilla. No abnormally loculated f luid collection is seen to suggest abscess formation. No mediastinal, hilar, internal mammary, or axillary mass or lymphadenopathy is seen. No pneumothorac es are identified. There are dependent changes in the left lung base and small area of patchy consoli dation in the right lung base. No pleural or pericardial effusions are seen. No lung masses are ident ified. Multiple sclerotic lesions have developed in the interim in the thoracic spine. A right-sided Port-A- Cath has been placed. Upper abdominal tomograms demonstrate changes of cholecystectomy. The visualized portions of the fernando d organs are unremarkable. There is a healing fracture of the right 9th rib. IMPRESSION: 1. Postop changes of left mastectomy. No definite evidence of abscess formation. 2. Probable right basilar pneumonia. 3. Osseous metastatic disease, new since 10/27/17. POS: [facility]
[2018-04-29] MEDS: Vancomycin HCl 1.5 GM in Sodium Chloride 0.9% 250 ML 300 ML IVPB SCH ×2 (12:24→23:52)
[2018-04-29] MEDS ORDERED: Vancomycin HCl 1 GM in Premix Bag 1 BAG IVPB SCH (14:00)
[2018-04-29] MEDS ORDERED: Acetaminophen 325 MG TAB PO PRN ×2 (19:15)
[2018-04-29] MEDS ORDERED: traMADol HCl 50 MG TAB PO PRN (19:15)
[2018-04-29] MEDS ORDERED: HYDROcodone/Acetaminophen 7.5/325 mg Tablet PO PRN (19:15)
[2018-04-29] MEDS ORDERED: Piperacillin/Tazobactam 3.375 GM in Sodium Chloride 0.9% 100 ML IVPB SCH (19:30)
[2018-04-29] MEDS: traMADol HCl 50 MG TAB PO PRN (21:36)
[2018-04-30] MEDS: Piperacillin/Tazobactam 3.375 GM in Sodium Chloride 0.9% 100 ML IVPB SCH ×4 (00:52→18:32)
--- NOTE | 2018-04-30 02:50 | HP ---
CHIEF COMPLAINT: Purulent PATY drainage. HISTORY: Ms. Bettencourt is a 38-year-old woman with locally advanced breast cancer who underwent neoadjuvant therapy and then left modified radical mastectomy by Dr. Williamson 2 weeks ago. She has PATY drains in place and her family noticed that the drainage from the medial drain had become very cloudy and dark in color and that she was also having drainage and pain at the drain site. They brought her to the emergency room, where she was felt to have a postoperative infection and sepsis and she was admitted for IV antibiotics. She states that she is feeling better today and has not had any fevers or chills. She denies any breakdown of her wounds and has not noticed any erythema of the chest wall. PAST MEDICAL HISTORY: Locally advanced breast cancer, asthma and hypertension. PAST SURGICAL HISTORY: Cholecystectomy and MediPort and left modified radical mastectomy. SOCIAL HISTORY: She does not smoke, drink or use illicit drugs. ALLERGIES: She has no known drug allergies. OUTPATIENT MEDICATIONS: Include Zofran and Tylenol with Codeine. PHYSICAL EXAMINATION: VITAL SIGNS: The patient has been afebrile since admission, heart rate is mildly elevated, respiratory rate is normal and she is well saturated on room air, blood pressure is also normal. GENERAL: Reveals an anxious appearing young woman in no acute distress. She is not flushed or toxic in appearance. She is not jaundiced or icteric. HEENT: Unremarkable. NECK: Supple, without lymphadenopathy or thyroid masses. HEART: Regular in its rate and rhythm without murmurs, rubs or gallops. LUNGS: Clear to auscultation anteriorly. ABDOMEN: Soft, nontender, nondistended. CHEST: Her mastectomy incision is well healed. Sloan are still in place as are both PATY drains. The drainage from the axillary drain is serous but the medial drain to her breast flap does have purulent drainage. There is no fluctuance of the chest wall and with compression of the chest wall, there is no additional drainage through the PATY drain. No erythema or skin changes and no significant tenderness to palpation over the left chest wall. EXTREMITIES: Warm and well perfused without edema. NEUROLOGIC: No focal deficits. PSYCHIATRIC: Alert, oriented, and appropriate with limited disease insight and significant anxiety. LABORATORY DATA: White count is mildly elevated at 11.9. Electrolytes and LFTs are unremarkable. Blood cultures show no growth to date. ASSESSMENT: Purulent drainage from the left mastectomy PATY drain without evidence of an undrained seroma or abscess. We will try to treat this conservatively with continued PATY drainage and IV antibiotics. If this does not improve, then reopening of the mastectomy incision with washout and either placement of a new drain or a VAC drain may be necessary. If she has an undrained fluid collection, then surgical intervention would be recommended sooner. I have ordered a CT of the chest to see if there is any undrained infection, but I do not believe that to be the case. [facility]
[2018-04-30 04:58] LABS: #Eosinphils 0.4 thou/uL (0.0-0.7); #Lymphocytes 1.2 thou/uL (1.20-3.40); #Monocytes 0.5 thou/uL (0.11-0.59); #Neutrophils 5.5 thou/uL (1.40-6.50); %Basophils 0.4 % (0.0-1.0); %Lymphocytes 16.1 % (21.0-51.0); %Monocytes 6.4 % (0.0-10.0); Hemoglobin 8.9 g/dL (12.0-16.0); Mean Corpuscular HGB CONC 33.5 g/dL (32.0-36.0); Mean Corpuscular Hemoglobin 29.6 pg (27.0-31.0); Mean Corpuscular Volume 88.2 fL (78.0-98.0); Mean Platelet Volume 7.2 fL (7.4-10.4); Platelet Count 282 thou/uL (130-400); RBC Distribution Width 14.9 % (11.5-14.5); Red Blood Cell (RBC) Count 3.02 mill/uL (4.20-5.40); White Blood Cell (WBC) Count 7.6 thou/uL (4.8-10.8)
[2018-04-30 05:30] LABS: Anion Gap 13 mmol/L (10-20); BUN (Urea Nitrogen) 8 mg/dL (7.0-18.7); Calc. Creatinine Clearance 198 mL/min (70-130); Calcium 9.1 mg/dL (7.8-10.44); Carbon Dioxide 22 mmol/L (22-29); Chloride 108 mmol/L (98-107); Estimated GFR-MDRD Greater than 90; Glucose 101 mg/dL (70-105); Potassium 4.4 mmol/L (3.5-5.1); Sodium 139 mmol/L (136-145)
[2018-04-30] MEDS: Enoxaparin Sodium 40 MG/0.4 ML SYRINGE SC SCH (10:39)
[2018-04-30] MEDS: Vancomycin HCl 1.5 GM in Sodium Chloride 0.9% 250 ML 300 ML IVPB SCH (10:39)
[2018-04-30] MEDS ORDERED: Ondansetron HCl/PF 4 MG/2 ML Vial IVP PRN (11:25)
[2018-04-30] MEDS ORDERED: Ondansetron ODT 4 MG TAB PO PRN (11:26)
[2018-04-30] MEDS: traMADol HCl 50 MG TAB PO PRN (22:04)
[2018-04-30 22:25] LABS: Vancomycin, Trough 11.4 ug/mL
[2018-04-30] MEDS: Vancomycin HCl 1.75 GM in Sodium Chloride 0.9% 500 ML IVPB SCH (23:44)
[2018-05-01] MEDS: Piperacillin/Tazobactam 3.375 GM in Sodium Chloride 0.9% 100 ML IVPB SCH ×2 (02:24→06:52)
[2018-05-01] MEDS: traMADol HCl 50 MG TAB PO PRN (06:53)
[2018-05-01] MEDS: Enoxaparin Sodium 40 MG/0.4 ML SYRINGE SC SCH (09:27)
[2018-05-01] MEDS: Vancomycin HCl 1.75 GM in Sodium Chloride 0.9% 500 ML IVPB SCH (11:28)
[2018-05-01 13:14] VITALS: BP 123/86; TEMP 97.9
[2018-05-01] MEDS ORDERED: Acetaminophen 500 MG TAB PO PRN (15:24)
[2018-05-01] MEDS ORDERED: Ibuprofen 600 MG TAB PO PRN (15:24)
--- NOTE | 2018-05-01 15:43 | PDOC.PN ---
- Subjective Encounter Start Date: 05/01/18 Encounter Start Time: 10:45 Pt feeling better, less tenderness to chest, wants drains out, asking when she gets to g home. Cx with MRSA in both No f/C, no n/V/d/c, sasha abx well all systems reviewed and neg x as above - Objective MAR Reviewed: Yes Vital Signs & Weight: Vital Signs (12 hours) Temp Pulse Resp BP BP Pulse Ox 05/01/18 13:13 97.9 F 90 18 123/86 97 05/01/18 08:05 96.5 F L 91 16 130/78 97 05/01/18 08:00 96.5 F L 91 16 97 05/01/18 04:00 98.0 F 99 19 125/77 98 Weight Weight 239 lb 6.752 oz I&O: 04/30/18 05/01/18 05/02/18 06:59 06:59 06:59 Intake Total 1200 Output Total 68 10 Balance -68 1190 Result Diagrams: 04/30/18 03:47 04/30/18 03:47 Phys Exam - Physical Examination Constitutional: NAD HEENT: PERRLA, moist MMs, sclera anicteric, oral pharynx no lesions Neck: no nodes, no JVD, supple, full ROM Respiratory: no wheezing, no rales, no rhonchi, clear to auscultation bilateral Cardiovascular: RRR, no significant murmur, no rub Gastrointestinal: soft, non-tender, no distention, positive bowel sounds Musculoskeletal: no edema, pulses present Neurological: non-focal, normal sensation, moves all 4 limbs Lymphatic: no nodes Psychiatric: normal affect, A&O x 3 Skin: no rash, normal turgor, cap refill <2 seconds Deviation from normal: incision C/D/I. minimal to no erythema, no fluctuance, no hyperemia Dx/Plan - Plan cont current plan of care, plan discussed w/ family, continue antibiotics, out of bed/ambulate * .
--- NOTE | 2018-05-01 16:46 | PRG ---
DATE OF SERVICE: 05/01/2018 SUBJECTIVE: Ms. Bettencourt is doing well today. Cultures from her mastectomy site drains, axilla and gina st, MRSA. It is sensitive to Bactrim and Cipro. She is sent home with Bactrim and Cipro for 2 weeks for her drain output. Decreased 4-6 meals 24 hours. The tubing was stripped. The patient's drain dressings were changed. She is being discharged home today with Cipro and Bactrim for 2 weeks. Resu me her home medications. Follow up with Dr. Williamson later this week. The drains can be removed. She will continue antibiotics. Hopefully, surgical intervention will not be necessary.
--- NOTE | 2018-05-01 17:58 | PRG ---
Stephany Bettencourt is doing well today. Her drainage PATY looks more serosanguineous. The output is dimini shed. Cultures obtained from the drains revealed Staphylococcus aureus. At this point, her wound lo oks good and recommend continuing IV antibiotics today. PLAN: Discharge home tomorrow on oral antibiotics. She agrees.
[2018-05-01] MEDS ORDERED: Ciprofloxacin 500 MG TAB PO SCH (20:00)
[2018-05-01] MEDS ORDERED: Sulfameth/Trimethoprim DS 800-160mg TAB PO SCH (21:00)
--- NOTE | 2018-05-02 11:02 | DIS ---
DATE OF ADMISSION: 04/29/2018 DATE OF DISCHARGE: 05/01/18 DISCHARGE DIAGNOSES: Mastectomy, wound site purulent drainage from the PATY drains, MRSA, cultured; ob esity; left breast cancer, status post neoadjuvant therapy. HISTORY: A 38-year-old female with advanced cancer, seen by Dr. Williamson with neoadjuvant therapy, un derwent mastectomy, left, had drains, presented because of redness about her wound and is concerned a bout infection as purulent drainage from the drains. Dr. Espino admitted her with IV vancomycin. D uring the hospitalization, the drainage improved in color and was less purulent. Drainage output dec reased. The patient was instructed on drain care, MRSA cultures. She was changed to oral antibiotic s, sent home and follow up with Dr. Williamson in 2 weeks.
== END 2018-05-01 16:50 | disposition home or self-care (01) | DRG 862 ==
LOC: ERS 22:14 → SURG A 23:34
PROVIDERS: ADMIT Surgery; ATTEND Surgery
DX: T81.4XXA Infection following a procedure, initial encounter (principal); A41.01 Sepsis due to Methicillin susceptible Staphylococcus aureus; Z68.42 Body mass index [BMI] 45.0-49.9, adult; Z90.12 Acquired absence of left breast and nipple; C50.912 Malignant neoplasm of unspecified site of left female breast; E66.01 Morbid (severe) obesity due to excess calories
CPT/HCPCS: 36415; 71260; 80048; 80053; 80202; 83605; 85025; 87040; 87070; 87077; 87186; 87205; 96361; 96365; 96375; A4216; J1650; J2270; J2405; J2543; J3370; J7050; Q0162

== ENCOUNTER 2018-05-13 08:54 | Outpatient (CLI) | payer OTHER ==
--- NOTE | 2018-05-13 13:53 | NM ---
RADIONUCLIDE BONE SCAN: HISTORY: Breast cancer. Restaging. COMPARISON: 10/27/17. FINDINGS: Physiologic uptake of radiotracer throughout the skeletal system. Degenerative-type changes of the s houlders, knees, and feet. New focus of increased uptake involving the posterolateral aspect of the right 10th rib correlates with a healing fracture on the 04/29/18 CT. IMPRESSION: Abnormality involving the posterolateral aspect of the right lower rib is favored to represent a heal ing fracture. No evidence of widespread metastatic disease. POS: [facility]
== END 2018-05-13 08:55 | disposition home or self-care (01) ==
LOC: NM 08:54
PROVIDERS: ATTEND Internal Medicine Medical Oncology
DX: C50.919 Malignant neoplasm of unspecified site of unspecified female breast (principal)
CPT/HCPCS: 78306; A9503

== ENCOUNTER 2018-06-30 09:59 | Outpatient (CLI) | payer OTHER ==
--- NOTE | 2018-06-30 15:57 | PET ---
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 Status post left total mastectomy. Exam requested for restaging. Patient had radiation therapy to the left chest wall. TECHNIQUE: PET scanning with CT attenuation correction was performed from the base of the brain through the prox imal thighs following the intravenous administration of 10.5 mCi [id number] in the right antecubital fos sa. Imaging was performed after an uptake interval of 55 minutes. COMPARISON: None. CORRELATION: CT chest dated 04/29/18 and whole body bone scan of 05/13/18. FINDINGS: Multiple hypermetabolic osseous lesions are seen, including the spine, pelvis, proximal femurs, left humerus, and ribs. There are foci of increased uptake in the hilar regions bilaterally with a maximum SUV of 6 on the ri ght and 4 on the left. These may be within nonenlarged lymph nodes. There is increased FDG localizati on in a 1.0 cm aortocaval lymph node with a SUV of 3.6. No hypermetabolic mediastinal, cervical, axil stella, or pelvic lymph nodes are seen. No hypermetabolic liver or adrenal lesions are identified. There is a hypermetabolic 3.5 cm right ovarian mass with a SUV of 8. There is physiologic activity in the GI and tracts, and the visualized portions of the brain. The CT scan used for attenuation correction demonstrates no evidence of pleural effusions or ascites. Multiple sclerotic lesions are seen in the skeleton. IMPRESSION: 1. Osseous metastatic disease. 2. Hypermetabolic foci in the hilar regions and the aortocaval lymph node are suspicious for metasta tic disease. 3. Hypermetabolic 3.5 cm right ovarian mass should be evaluated with pelvic ultrasound. POS: [facility]
== END 2018-06-30 10:00 | disposition home or self-care (01) ==
LOC: PET 09:59
PROVIDERS: ATTEND Internal Medicine Medical Oncology
DX: C50.919 Malignant neoplasm of unspecified site of unspecified female breast (principal); M89.9 Disorder of bone, unspecified; N83.9 Noninflammatory disorder of ovary, fallopian tube and broad ligament, unspecified
CPT/HCPCS: 78815; A9552

== ENCOUNTER 2018-07-08 07:30 | Outpatient (CLI) | payer OTHER | END 2018-07-08 07:31 | disposition home or self-care (01) | LOC: BICULT 07:30 | PROVIDERS: ATTEND Internal Medicine Medical Oncology | DX: N83.8 Other noninflammatory disorders of ovary, fallopian tube and broad ligament (principal); C50.412 Malignant neoplasm of upper-outer quadrant of left female breast | CPT/HCPCS: 76856; 93976 ==

== ENCOUNTER 2018-07-13 13:55 | Day surgery (SDC) | payer OTHER ==
[2018-07-13] MEDS ORDERED: Goserelin Acetate 3.6 MG KIT SC SCH (14:30)
== END 2018-07-13 16:16 | disposition home or self-care (01) ==
LOC: ONC/OP 13:55
PROVIDERS: ATTEND Internal Medicine Medical Oncology
DX: Z51.11 Encounter for antineoplastic chemotherapy (principal); C50.412 Malignant neoplasm of upper-outer quadrant of left female breast; E78.5 Hyperlipidemia, unspecified; J45.909 Unspecified asthma, uncomplicated; Z79.899 Other long term (current) drug therapy
CPT/HCPCS: 36415; 80053; 82248; 82378; 82465; 83615; 84100; 84550; 86300; 96402; J9202

== ENCOUNTER 2018-07-24 13:23 | Emergency (ER) | payer OTHER ==
--- NOTE | 2018-07-24 14:31 | RAD ---
THREE VIEWS RIGHT SHOULDER: HISTORY: Pain. COMPARISON: None. FINDINGS: Acromioclavicular and coracoclavicular distances are maintained. Glenohumeral joint space is preserv ed. No fracture or dislocation. Visualized right ribs are unremarkable. IMPRESSION: No fracture or dislocation. POS: [facility]
[2018-07-24] MEDS ORDERED: Morphine 4 MG/ML VIAL ONE (14:54)
[2018-07-24] MEDS ORDERED: Docusate 100 MG CAP PO SCH (15:00)
== END 2018-07-24 15:37 | disposition home or self-care (01) ==
LOC: ERS 13:23
DX: M25.511 Pain in right shoulder (principal); J45.909 Unspecified asthma, uncomplicated; I10 Essential (primary) hypertension
CPT/HCPCS: 96372; J2270

== ENCOUNTER 2018-07-29 16:16 | Outpatient (CLI) | payer OTHER | END 2018-07-29 16:17 | disposition home or self-care (01) | LOC: BICRAD 16:16 | PROVIDERS: ATTEND Internal Medicine Medical Oncology | DX: C79.51 Secondary malignant neoplasm of bone (principal); C50.919 Malignant neoplasm of unspecified site of unspecified female breast; M41.86 Other forms of scoliosis, lumbar region; R52 Pain, unspecified | CPT/HCPCS: 72100; 72170 ==

== ENCOUNTER 2018-08-03 13:53 | Day surgery (SDC) | payer OTHER ==
[2018-08-03] MEDS ORDERED: Goserelin Acetate 3.6 MG KIT SC SCH (14:15)
[2018-08-03 14:31] VITALS: BP 121/91; TEMP 98.1
== END 2018-08-03 16:27 | disposition home or self-care (01) ==
LOC: ONC/OP 13:53
PROVIDERS: ATTEND Internal Medicine Medical Oncology
DX: Z51.11 Encounter for antineoplastic chemotherapy (principal); C50.412 Malignant neoplasm of upper-outer quadrant of left female breast; E78.5 Hyperlipidemia, unspecified; J45.909 Unspecified asthma, uncomplicated; Z79.899 Other long term (current) drug therapy; Z88.8 Allergy status to other drugs, medicaments and biological substances
CPT/HCPCS: 36415; 80053; 82248; 82378; 82465; 83615; 84100; 84550; 86300; 86304; 96402; J9202; J9395

== ENCOUNTER 2018-08-17 13:42 | Day surgery (SDC) | payer OTHER ==
[2018-08-17 14:04] VITALS: BP 119/74; TEMP 98.2
== END 2018-08-17 14:52 | disposition home or self-care (01) ==
LOC: ONC/OP 13:42
PROVIDERS: ATTEND Internal Medicine Medical Oncology
DX: Z51.11 Encounter for antineoplastic chemotherapy (principal); C50.412 Malignant neoplasm of upper-outer quadrant of left female breast; E78.5 Hyperlipidemia, unspecified; Z79.899 Other long term (current) drug therapy
CPT/HCPCS: 96402; J9395

== ENCOUNTER 2018-09-01 14:28 | Day surgery (SDC) | payer OTHER ==
[2018-09-01] MEDS ORDERED: Goserelin Acetate 3.6 MG KIT SC SCH (15:00)
== END 2018-09-01 15:17 | disposition home or self-care (01) ==
LOC: ONC/OP 14:28
PROVIDERS: ATTEND Internal Medicine Medical Oncology
DX: Z51.11 Encounter for antineoplastic chemotherapy (principal); C50.412 Malignant neoplasm of upper-outer quadrant of left female breast; Z88.8 Allergy status to other drugs, medicaments and biological substances
CPT/HCPCS: 36415; 80053; 82248; 83615; 84100; 84550; 96402; J9202; J9395

== ENCOUNTER 2018-10-04 19:41 | Inpatient (IN) | payer OTHER ==
[2018-10-04] MEDS ORDERED: Lorazepam 2 MG/ML VIAL ONE (20:09)
[2018-10-04] MEDS ORDERED: Fentanyl 100 MCG/2 ML VIAL ONE (20:09)
[2018-10-04 20:21] LABS: #Eosinphils 0.1 thou/uL (0.0-0.7); #Lymphocytes 0.7 thou/uL (1.20-3.40); #Monocytes 0.3 thou/uL (0.11-0.59); #Neutrophils 2.1 thou/uL (1.40-6.50); %Eosinophils 2.3 % (0.0-10.0); %Lymphocytes 22.7 % (21.0-51.0); %Monocytes 8.2 % (0.0-10.0); %Neutrophils 65.8 % (42.0-75.0); Hemoglobin 6.8 g/dL (12.0-16.0); Mean Corpuscular HGB CONC 34.1 g/dL (32.0-36.0); Mean Corpuscular Hemoglobin 29.1 pg (27.0-31.0); Mean Corpuscular Volume 85.3 fL (78.0-98.0); Mean Platelet Volume 9.4 fL (7.4-10.4); Platelet Count 227 thou/uL (130-400); RBC Distribution Width 21.5 % (11.5-14.5); Red Blood Cell (RBC) Count 2.35 mill/uL (4.20-5.40); White Blood Cell (WBC) Count 3.3 thou/uL (4.8-10.8)
[2018-10-04 20:44] LABS: ALT (SGPT) 13 U/L (8-55); AST (SGOT) 33 U/L (5-34); Albumin 3.8 g/dL (3.5-5.0); Alkaline Phosphatase 122 U/L (40-150); Anion Gap 16 mmol/L (10-20); BUN (Urea Nitrogen) 14 mg/dL (7.0-18.7); Bilirubin, Total 0.5 mg/dL (0.2-1.2); Calc. Creatinine Clearance 0 mL/min (70-130); Calcium 10.8 mg/dL (7.8-10.44); Carbon Dioxide 23 mmol/L (22-29); Chloride 104 mmol/L (98-107); Estimated GFR-MDRD 58; Glucose 97 mg/dL (70-105); Protein, Total 7.8 g/dL (6.0-8.3); Sodium 139 mmol/L (136-145)
--- NOTE | 2018-10-04 21:18 | PDOC.FPRHP ---
- History of Present Illness Chief Complaint: decreased function 2/2 uncontrolled pain History of Present Illness: 38YOF w/ a PMH significant for Stage IV b breast cancer with mets to her liver, pelvis and femur who presented to the ED with a chief complaint of uncontrollable pain in her lower back and hips that became unbearable over the course of today. She said that the pain was present when she woke up this morning so she took 100mg of tramadol & 10mg of flexeril. She waited until 10AM and the pain was no better so she then took 200mg of tramadol. However, despite this her pain increased to >10/10 by dinnertime so she decided to come to the ED. The patient reported that her pain was previously much better controlled on an unknown dose of PO Cucumber but that she has been unable to refill it because her insurance no longer covers it. She is currently only on tramadol 50-100 mg Q6H and flexeril 10mg BID for pain control and states this does not help her pain much at all. She and her family report decreased mobility for the last several weeks as well as decreased appetite and PO intake 2/2 pain. The patient denies any intractable N/V but did endorse 1 episode of vomiting yesterday. She denies any associated fever/chills, cough, congestion, or sick contacts. She does report increased fatigue and generalized weakness. Her family also reports unintentional weight loss 2/2 decreased PO intake. ED Course: EMS: 6mg IV morphine and 4mg of nausea ED: 100mcg fentanyl, 1mg of Ativan and 1L of NS. Also ordered 2 units of PRBCs to be transfused. - Allergies/Adverse Reactions Allergies Allergy/AdvReac Type Severity Reaction Status Date / Time paclitaxel [From Taxol] AdvReac Mild Rash Verified 04/08/18 10:40 - Home Medications Medication Instructions Recorded Confirmed Type Ondansetron [Zofran ODT] 8 mg PO Q4HR PRN 04/08/18 04/29/18 History HYDROcodone Bit/APAP 7.5/325 1 - 2 tab PO Q4HR PRN 04/22/18 04/29/18 History [Cucumber] Acetaminophen [Tylenol Extra 1,000 mg PO Q6H PRN tab 05/01/18 Rx Strength] Ciprofloxacin [Cipro] 500 mg PO 599,1999 #28 tab 05/01/18 Rx Ibuprofen [Motrin] 600 mg PO Q6H PRN tab 05/01/18 Rx Ondansetron [Zofran ODT] 4 mg PO Q4H PRN #10 tab 05/01/18 Rx Sulfamethoxazole/Trimethoprim 1 tab PO BID #28 tab 05/01/18 Rx [Bactrim DS] - History PMHx: stage IV b breast cancer with mets to liver, pelvis, and femur s/p L mastectomy, radiation and chemo, asthma, HTN PSHx: cholectstectomy, L mastectomy w/ node removal, chemo port placement in R chest FHx: non-contributory Social: No EtOH, tobacco, or drug use. Lives in [facility] with and 2 sons. - Review of Systems General: reports: weight/appetite/sleep changes, night sweats, fatigue. denies : fever/chills Eyes: denies: eye pain, vision changes ENT: reports: other (no sore throat). denies: nasal congestion Respiratory: denies: cough, congestion, shortness of breath Cardiovascular: denies: chest pain, palpitation, edema Gastrointestinal: reports: vomiting, constipation. denies: nausea, diarrhea, abdominal pain Genitourinary: denies: incontinence, dysuria Skin: denies: rashes, itching Musculoskeletal: reports: pain. denies: swelling Neurological: denies: numbness, syncope, weakness Psychological: denies: anxiety, depression - Vital signs BP: 140/110 HR: 130 RR: 18 Tmax: 100.3F Pox: 97% on RA Wt: 96.16 kg - Physical Exam Constitutional: awake, alert and oriented, well developed -Constitutional: mild distress 2/2 pain HEENT: normocephalic and atraumatic, conjunctiva clear (but pallor present), grossly normal vision, grossly normal hearing, other (poor dentition with dry mucus membranes) Neck: supple, trachea midline Heart: normal S1/S2, pulses present (tachycardic with regular rhythm), no edema Lungs: no respiratory distress, no rales/rhonchi, no wheezing, other (Only able to listen in B/L upper airways 2/2 decreased mobility from pain) Abdomen: soft, non-tender, bowel sounds present (hypoactive) Musculoskeletal: normal structure, other (ROM decreased in back 2/2 pain) Neurological: no focal deficit, CN II-XII intact (symmetric facial movements) Skin: no rash/lesions, good turgor, capillary refill <2 seconds Heme/Lymphatic: no unusual bruising or bleeding Psychiatric: normal mood and affect, good judgment and insight FMR H&P: Results - Labs Result Diagrams: 10/05/18 02:34 10/05/18 02:34 Lab results: WBC 3.3 thou/uL (4.8-10.8) L 10/04/18 20:13 Hgb 6.8 g/dL (12.0-16.0) L 10/04/18 20:13 Hct 20.1 % (36.0-47.0) L 10/04/18 20:13 MCV 85.3 fL (78.0-98.0) 10/04/18 20:13 Plt Count 227 thou/uL (130-400) 10/04/18 20:13 Neutrophils % 65.8 % (42.0-75.0) 10/04/18 20:13 Sodium 139 mmol/L (136-145) 10/04/18 20:13 Potassium 4.0 mmol/L (3.5-5.1) 10/04/18 20:13 Chloride 104 mmol/L (98-107) 10/04/18 20:13 Carbon Dioxide 23 mmol/L (22-29) 10/04/18 20:13 BUN 14 mg/dL (7.0-18.7) 10/04/18 20:13 Creatinine 1.06 mg/dL (0.6-1.1) 10/04/18 20:13 Glucose 97 mg/dL (70-105) 10/04/18 20:13 Calcium 10.8 mg/dL (7.8-10.44) H 10/04/18 20:13 Total Bilirubin 0.5 mg/dL (0.2-1.2) 10/04/18 20:13 AST 33 U/L (5-34) 10/04/18 20:13 ALT 13 U/L (8-55) 10/04/18 20:13 Alkaline Phosphatase 122 U/L (40-150) 10/04/18 20:13 Serum Total Protein 7.8 g/dL (6.0-8.3) 10/04/18 20:13 Albumin 3.8 g/dL (3.5-5.0) 10/04/18 20:13 - Radiology Interpretation Chest x-ray Status: image reviewed by me, report reviewed by me (extensive new alveolar and interstitial opacity on the left w/ consolidation in LLL that could be 2/2 mets vs. PNA vs. atelectasis vs. fluid) FMR H&P: A/P - Problem List (1) Cancer-related pain Current Visit: Yes Status: Chronic Code(s): G89.3 - NEOPLASM RELATED PAIN ( ACUTE) (CHRONIC) (2) Symptomatic anemia Current Visit: Yes Status: Acute Code(s): D64.9 - ANEMIA, UNSPECIFIED (3) Constipation due to pain medication Current Visit: Yes Status: Acute Code(s): K59.03 - DRUG INDUCED CONSTIPATION (4) HTN (hypertension) Current Visit: Yes Status: Chronic Code(s): I10 - ESSENTIAL (PRIMARY) HYPERTENSION (5) Asthma Current Visit: Yes Status: Chronic Code(s): J45.909 - UNSPECIFIED ASTHMA, UNCOMPLICATED Qualifiers: Asthma severity: mild (6) Breast cancer metastasized to bone Current Visit: Yes Status: Chronic Code(s): C50.919 - MALIGNANT NEOPLASM OF UNSP SITE OF UNSPECIFIED FEMALE BREAST; C79.51 - SECONDARY MALIGNANT NEOPLASM OF BONE Qualifiers: Laterality: left Qualified Code(s): C50.912 - Malignant neoplasm of unspecified site of left female breast; C79.51 - Secondary malignant neoplasm of bone (7) Leukopenia Current Visit: Yes Status: Chronic Code(s): D72.819 - DECREASED WHITE BLOOD CELL COUNT, UNSPECIFIED (8) Tachycardia Current Visit: Yes Status: Acute Code(s): R00.0 - TACHYCARDIA, UNSPECIFIED - Plan 38YOF w/ a h/o stage IV b breast cancer w/ met to her pelvis, femur and liver who presented to the ED w/ a CC of intractable low back and hip pain that had gotten progressively worse over the course of the day to the point where she decided to come to the ED for further management. Intractable pain 2/2 stage IV breast CA with bony metastases: - Will start on EDI Cucumber 10/325 EDI Q4H in addition to EDI IV morphine 4mg Q4H for pain control. - Will also start on a EDI bowel regimen. - Will consider consulting anesthesia in the AM for need for possible PUNCHBOARD FILLING MACHINE OPERATOR pump for better pain control if no improvement overnight. Symptomatic anemia: - Hgb of 6.8 on presentation. 2 units of PRBCs ordered to be given in the ED. - Will get a repeat hemagram 4 hours after 2nd unit is transfused and a repeat CBC in the AM. - Will continue to monitor vitals closely. Tachycardia: - HR has been in the 130s-140s since presentation. Could be 2/2 multiple factors including volume depletion from decreased PO intake vs. anemia vs. pain vs. possible infection vs. PE. - CXR showed a L-sided consolidation vs. atelectasis vs. fluid collection. - Will order a regular diet and start on maintenance IVFs w/ LR @ 130mL/hr to address poor PO intake. - Will address anemia and pain as described above. Will order a CTA to r/o a PE as Wells score was a 4 or moderate risk given CA diagnosis, tachycardia, and decreased mobility. - CTA will also evaluate for PNA as potential infectious etiology as diagnosis unclear based on CXR. Tmax of 100.3F in the ED. Will hold off on Abx for now and only draw blood cultures and treat if patient actually becomes febrile per recs of Dr. Phillip w/ oncology. Will order a UA as well per Dr. Phillip. - Will continue to monitor vitals closely overnight on telemetry and monitor for fever as well. Constipation: - Patient reports last BM was last week. Likely 2/2 tramadol use. - Will start on a EDI bowel regimen w/ miralax and senokot but may consider an enema in the AM as KUB significant for large stool burden in R colon. Stage IV breast CA with bony metastases: - Aware, patient follows w/ Dr. Brown. Will call for courtesy consult in the AM. - Will address pain as outlined above. - Will consider a palliative care consult in the AM. Leukopenia: - Patient IC 2/2 chemotherapy w/ a WBC of 3.3 on presentation. - Will continue to monitor w/ AM CBC. HTN: - Aware, BP 140/110 in ED but could be elevated 2/2 pain as well. - Patient is not currently on any meds at home for this. - Will continue to monitor and treat PRN. Asthma: - Patient not on any home meds right now. - Will order albuterol PRN. FMR H&P: Upper Level - Pertinent history 38 yo F with PMHx of Stave IV breast cancer with bone metastasis presents with cc of intractable pain to back and hips that has progressively worsened over the course of the day. She has been on tramadol and flexeril for pain because she has not been able to get norco covered by insurance. She also reports decreased PO intake and activity because of the pain. She has not had a BM in approximately 1 week. She reports that norco constipates her. - Pertinent findings Tachycardic, hypertensive Exam: Gen: awake, alert, oriented, appears uncomfortable HEENT: atraumatic, normocephalic CV: tachycardic, no murmur noted RESP: CTAB ABD: soft, nontender, nondistended, BS present and normoactive EXT: no swelling - Plan Date/Time: 10/04/182115 38 yo F with Stage IV breast cancer including bony metastasis here with intractable pain and tachycardia 1. Intractable pain - Will admit to Obs and start Cucumber which patient reports has best controlled her pain in the past, morphine PRN breakthrough - Will need to look into transitioning to morphine alternative depending on what insurance will cover - Bowel regimen - Consider PUNCHBOARD FILLING MACHINE OPERATOR if inadequate pain relief with PO/IV pain meds 2. Symptomatic anemia - 2u pRBC ordered - repeat H&H post-transfusion 3. Tachycardic - DDX includes pain, volume depletion, infection, PE - Monitor on telemetry, CTA ordered to better characterize CXR findings and r/o PE - UA ordered 4. Constipation - Unable to tolerate movement for rectal exam - KUB shows moderate stool burden - Bowel regimen and consider enema vs. disimpaction if indicated - IV hydration 5. Stage IV breast cancer - Notify Dr. Rico, consider palliative care consult 6. Leukopenia - ANC 2171 - If fever, consider BCx/UCx I, Miladys Resendiz MD, PGY-3, have evaluated this patient and agree with findings/ plan as outlined by internet marketing analyst resident. Pertinent changes/additions are listed here. Attending Addendum - Attending Addendum Date/Time: 10/05/18 [id number] I personally evaluated the patient and discussed the management with Dr. Resendiz. I agree with and repeated the History, Examination, Assessment and Plan documented above with any addition or exceptions noted below. Pt with plethoric face but not swollen per family. Diminished BS on left with trace crackles. Tachy, without murmur, regular. Bs+, NTTP. Moves all 4 extremities. On imaging opacified left lung on CXR. CT without read. Poor evaluation of pulmonary vasculature. Prominent LAD. Large pleural effusion with findings in left lung of atelectasis vs pneumonia. Morphine for cancer pain. Miralax/senna for constipation. May need PUNCHBOARD FILLING MACHINE OPERATOR as she appears to be in significant pain currently. In terms of her effusion she was in no respiratory distress and had no respiratory complaints at the time of my evaluation on 10/04, and I imaging her effusion is malignant, although parapneumonic is not excluded. Likely consult pulm in the AM. Hydration for hypercalcemia. PRBCs and recheck. Hold antibiotics. PCT not very impressive. Guarded prognosis. In addition to onc and pulm, would strongly consider palliative.
--- NOTE | 2018-10-04 21:54 | RAD ---
PORTABLE UPRIGHT FRONTAL CHEST RADIOGRAPH 10/04/18 COMPARISON: 10/21/17. HISTORY: Malignancy and fever. FINDINGS: There is new hazy air space disease involving the medial aspect of the left hemithorax with dense opa city in the left lung base obscuring the left hemidiaphragm and left heart border with blunting of th e left costophrenic angle, all new when compared to prior imaging. There is a right Port-A-Cath. Righ t lung appears clear. IMPRESSION: Extensive new interstitial and alveolar opacity within the left hemithorax with dense opacity in the left lung base suggesting consolidation/collapse and/or left pleural fluid. Findings are suspicious f or infectious pneumonitis/aspiration. Underlying malignancy cannot be excluded. Followup imaging foll owing treatment advised to document resolution. POS: [facility]
[2018-10-04] MEDS ORDERED: Morphine 2 MG/ML SYRINGE SLOW IVP SCH (23:15)
--- NOTE | 2018-10-04 23:17 | RAD ---
KUB: 10/04/18 COMPARISON: None. HISTORY: Constipation. FINDINGS: Supine imaging is provided, limiting assessment for pneumoperitoneum and bowel obstruction. There are a few mildly distended gas filled loops of small bowel within the central abdomen. There is signifi cant stool overlying the colon on the right. IMPRESSION: Prominent stool overlies the right colon. Mild gaseous distention of small bowel within the central a bdomen. POS: [facility]
[2018-10-04] MEDS ORDERED: Morphine 4 MG/ML VIAL ONE (23:43)
[2018-10-05 01:30] LABS: Bilirubin Negative (Negative); Blood, Urine Negative (Negative); Clarity CLOUDY (Clear); Glucose, Urine (Dipstick) Negative (Negative); Leukocyte Small (Negative); Nitrite Negative (Negative); Protein, Urine (Dipstick) Negative (Neg-Trace); Specific Gravity, Urine 1.013 (1.002-1.036); Urobilinogen 0.2 mg/dL (0.2-1.0); pH, Urine 7.5 (5.0-9.0)
[2018-10-05 01:32] LABS: Bacteria/HPF Rare-Few HPF (None Seen); Hyaline Casts/LPF 0-3 HYALINE CAST LPF (0-3 Hyaline); Pathc Cast-AUWi Flag 0.72 (0-2.49); RBC/HPF 0-3 HPF (0-3); Squamous Epithelial 0-3 HPF (0-3)
[2018-10-05] MEDS ORDERED: Morphine 4 MG/ML VIAL SLOW IVP PRN (01:44)
[2018-10-05] MEDS ORDERED: Ondansetron ODT 4 MG TAB PO PRN (01:44)
[2018-10-05 02:50] LABS: #Lymphocytes 0.8 thou/uL (1.20-3.40); #Monocytes 0.2 thou/uL (0.11-0.59); #Neutrophils 2.3 thou/uL (1.40-6.50); %Basophils 1.1 % (0.0-1.0); %Eosinophils 1.2 % (0.0-10.0); %Lymphocytes 22.5 % (21.0-51.0); %Monocytes 7.2 % (0.0-10.0); %Neutrophils 67.9 % (42.0-75.0); Hemoglobin 8.3 g/dL (12.0-16.0); Mean Corpuscular HGB CONC 34.9 g/dL (32.0-36.0); Mean Corpuscular Hemoglobin 29.8 pg (27.0-31.0); Mean Corpuscular Volume 85.6 fL (78.0-98.0); Mean Platelet Volume 9.5 fL (7.4-10.4); Platelet Count 190 thou/uL (130-400); RBC Distribution Width 18.8 % (11.5-14.5); Red Blood Cell (RBC) Count 2.77 mill/uL (4.20-5.40); White Blood Cell (WBC) Count 3.4 thou/uL (4.8-10.8)
[2018-10-05 03:17] LABS: Anion Gap 17 mmol/L (10-20); BUN (Urea Nitrogen) 12 mg/dL (7.0-18.7); Calc. Creatinine Clearance 0 mL/min (70-130); Calcium 10.4 mg/dL (7.8-10.44); Carbon Dioxide 18 mmol/L (22-29); Chloride 104 mmol/L (98-107); Estimated GFR-MDRD 67; Glucose 96 mg/dL (70-105); Potassium 4.5 mmol/L (3.5-5.1); Sodium 134 mmol/L (136-145)
--- NOTE | 2018-10-05 06:20 | PDOC.FM ---
- Subjective Subjective: Ms. Bettencourt still in ER hold. Was lying on her side in bed crying d/t pain when I walked into room. Has unfortunately not received the schedule [place] while in the ED. Had only received morphine at midnight. Worst pain is in hips. No SOB, difficulty breathing, CP. - Objective MAR Reviewed: Yes Result Diagrams: 10/05/18 02:34 10/05/18 02:34 Phys Exam - Physical Examination tearful, in pain, will not move from current position poor dentition Respiratory: clear to auscultation bilateral Cardiovascular: RRR, no significant murmur Gastrointestinal: soft, no distention, positive bowel sounds Musculoskeletal: no edema Neurological: non-focal Deviation from normal: tearful d/t pain Skin: normal turgor Dx/Plan (1) Intractable pain Code(s): R52 - PAIN, UNSPECIFIED Status: Acute (2) Cancer-related pain Code(s): G89.3 - NEOPLASM RELATED PAIN (ACUTE) (CHRONIC) Status: Chronic (3) Breast cancer metastasized to bone Code(s): C50.919 - MALIGNANT NEOPLASM OF UNSP SITE OF UNSPECIFIED FEMALE BREAST ; C79.51 - SECONDARY MALIGNANT NEOPLASM OF BONE Status: Chronic Qualifiers: Laterality: left Qualified Code(s): C50.912 - Malignant neoplasm of unspecified site of left female breast; C79.51 - Secondary malignant neoplasm of bone (4) Constipation due to pain medication Code(s): K59.03 - DRUG INDUCED CONSTIPATION Status: Acute (5) Symptomatic anemia Code(s): D64.9 - ANEMIA, UNSPECIFIED Status: Acute (6) Tachycardia Code(s): R00.0 - TACHYCARDIA, UNSPECIFIED Status: Acute (7) HTN (hypertension) Code(s): I10 - ESSENTIAL (PRIMARY) HYPERTENSION Status: Chronic (8) Leukopenia Code(s): D72.819 - DECREASED WHITE BLOOD CELL COUNT, UNSPECIFIED Status: Chronic (9) Asthma Code(s): J45.909 - UNSPECIFIED ASTHMA, UNCOMPLICATED Status: Chronic Qualifiers: Asthma severity: mild - Plan Plan: 38YOF w/ a h/o stage IV b breast cancer w/ met to her pelvis, femur and liver who presented to the ED w/ a CC of intractable low back and hip pain that had gotten progressively worse over the course of the day to the point where she decided to come to the ED for further management. Intractable pain 2/2 stage IV breast CA with bony metastases: - EDI [place] 10/325 EDI Q4H in addition to IV morphine 4mg Q4H prn for pain control. Due to being in ED, patient has not been receiving these as ordered. - Continue EDI bowel regimen - Pt continues to rate pain 4-6/10 but appears to be in greater pain than this. Symptomatic anemia: - Hgb of 6.8 s/p 2 units of PRBCs, now improved to 8.3 - Will continue to monitor vitals closely. Tachycardia: - Could be 2/2 multiple factors including volume depletion from decreased PO intake vs. anemia vs. pain vs. possible infection vs. PE. - Has improved from 130s now to 110s - CXR showed a L-sided consolidation vs. atelectasis vs. fluid collection. Initially had an elevated temp of 100.3, but has been afebrile with temp decreased since. No need for abx at this time. - IVFs w/ LR @ 130mL/hr. Will see if PO intake improves today - CTA read pending. Wells score 4. - Continue to monitor VS Constipation: - Patient reports last BM was last week. Likely 2/2 tramadol use. - Continue EDI bowel regimen. May consider enema if no improvement - KUB significant for large stool burden in R colon. Stage IV breast CA with bony metastases: - Aware, patient follows w/ Dr. Brown. Will call for courtesy consult in the AM. - Will address pain as outlined above. Leukopenia: - Patient IC 2/2 chemotherapy w/ a WBC of 3.3 on presentation. - Will continue to monitor w/ AM CBC. HTN: - Aware, BP 140/110 in ED but could be elevated 2/2 pain as well. - Patient is not currently on any meds at home for this. - Will continue to monitor and treat PRN. Asthma: - Patient not on any home meds right now. - Will order albuterol PRN.
[2018-10-05] MEDS ORDERED: HYDROcodone/Acetaminophen 10/325 mg Tablet ONE ×2 (06:49→13:24)
[2018-10-05] MEDS ORDERED: Morphine 2 MG/ML SYRINGE ONE ×4 (08:24→16:25)
[2018-10-05] MEDS ORDERED: Morphine 2 MG/ML SYRINGE SLOW IVP PRN (08:35)
[2018-10-05] MEDS ORDERED: Morphine 4 MG/ML VIAL ONE (08:39)
--- NOTE | 2018-10-05 09:04 | CT ---
PRELIMINARY REPORT/[facility]/EMERGENTY AFTER-HOURS PROCEDURE CT Angiography Chest With Intravenous Contrast EXAM DATE/TIME: 10/05/2018 2:17 AM CLINICAL HISTORY: 38 years old, female; Pain; Chest pain; On breathing; Patient HX: Patient is a 38yo f with pmh of sta ge iv breast cancer with metastasis to pelvis, liver, and femur who presents with 2 month decline in mobility associated with unrelenting pain. Sees dr. Rico for chemo, she currently takes tramadol and flexeril for pain but is no longer able to complete adl's due to pain. Also reports poor po intak e over the last few days. Brought in by ems and received 6mg morphine and 4mg zofran. TECHNIQUE: Axial computed tomographic angiography images of the chest with intravenous contrast using CT angiogr aphy protocol. MIP reconstructed images were created and reviewed. COMPARISON: No relevant prior studies available. FINDINGS: Tubes, catheters and devices: Right chest port in place. Pulmonary arteries: Limited study due to motion and streak artifacts; there is no obvious central pul monary embolism the lobar level, however evaluation distally is significantly limited. Aorta: No acute findings. No aortic aneurysm or dissection. Lungs: Limited evaluation due to motion. Large left pleural effusion and adjacent atelectasis. Trace right pleural effusion. Patchy subsegmental atelectasis. Right lower lobe peribronchial atelectatic/airspace opacities. Pleural space: See above. No pneumothorax. Heart: No cardiomegaly. No pericardial effusion. Lymph nodes: Prominent mediastinal and left supraclavicular lymph nodes. Left axillary dissection. Bones/joints: Widespread osseous metastatic disease including numerous vertebral metastases with endp late pathologic compression deformities of the lower thoracic vertebrae and pathologic rib fractures. Soft tissues: Left mastectomy postsurgical/post treatment changes. IMPRESSION: Significantly limited study. No obvious central pulmonary embolism. Large left pleural effusion and adjacent atelectasis. Right lower lobe peribronchial atelectatic/airs pace opacities; early bronchopneumonia not excluded. Widespread osseous metastatic disease described above. Other findings above. Thank you for allowing us to participate in the care of your patient. Dictated and Authenticated by: Emerson Najera MD 10/05/2018 3:12 AM Central Time ([place] & [place]) FINAL REPORT EMERGENT AFTER HOURS CT PULMONARY ANGIOGRAM WITH IV CONTRAST AND 3D MIP RECONSTRUCTIONS: IMPRESSION: Agree with the preliminary interpretation given by [facility]. Limited study with regard to evaluation of p ulmonary emboli. Large left pleural effusion and bilateral parenchymal abnormalities that may reflec t pneumonia. Widespread osseous metastatic disease with associated pathologic fractures. POS: [facility]
[2018-10-05 10:39] VITALS: BMI 40.6
[2018-10-05] MEDS: HYDROcodone/Acetaminophen 10/325 mg Tablet PO SCH ×3 (10:44→13:32)
[2018-10-05] MEDS: Lactated Ringer's 1,000 ML IV SCH ×2 (10:45→10:58)
[2018-10-05] MEDS: Polyethylene Glycol 3350 17 GM Packet PO SCH (11:01)
[2018-10-05] MEDS: Senokot S 8.6-50 MG TAB PO SCH ×2 (11:01→20:29)
[2018-10-05] MEDS ORDERED: HYDROcodone/Acetaminophen 5/325 mg Tablet PO PRN (12:06)
--- NOTE | 2018-10-05 12:06 | PRG ---
DATE OF SERVICE: 10/05/2018 Ms. Bettencourt is an unfortunate 38-year-old white female with metastatic stage IV breast cancer. She has been having intractable pain and came to our ER with pain. We are currently treating her with narcotic pain relief and she is at least somewhat more comfortable. We are also in touch base with her oncologist, Dr. Rico. She was also noted to have a hemoglobin of 6.8 on admission and has been transfused to a hemoglobin now of 8.3. Her Chem-7 shows a sodium of 134, potassium of 4.5, chloride of 104, bicarbonate is 18, BUN 12, creatinine 0.94. She is more comfortable than on admission with her narcotic pain relief. Job ID: [id number]
[2018-10-05] MEDS ORDERED: Ibuprofen 800 MG TAB PO PRN (12:07)
[2018-10-05] MEDS ORDERED: HYDROcodone/Acetaminophen 5/325 mg Tablet ONE (13:26)
[2018-10-05] MEDS ORDERED: Morphine 10 MG/ML VIAL SLOW IVP SCH (16:15)
[2018-10-05] MEDS: Morphine 2 MG/ML SYRINGE SLOW IVP SCH ×2 (16:22→16:26)
[2018-10-05] MEDS ORDERED: HYDROcodone/Acetaminophen 10/325 mg Tablet PO SCH (18:00)
[2018-10-05] MEDS: Morphine ER 30 MG TAB PO SCH (20:27)
[2018-10-05] MEDS: Morphine IR Tab 15 MG TAB PO PRN (20:28)
[2018-10-05] MEDS: Enoxaparin Sodium 40 MG/0.4 ML SYRINGE SC SCH (20:29)
[2018-10-05] MEDS ORDERED: Morphine ER 15 MG TAB PO SCH (21:00)
[2018-10-06] MEDS: Morphine IR Tab 15 MG TAB PO PRN ×2 (00:49→05:06)
[2018-10-06] MEDS: Lactated Ringer's 1,000 ML IV SCH ×4 (00:55→22:08)
--- NOTE | 2018-10-06 06:02 | PDOC.FM ---
- Subjective Subjective: Ms. Bettencourt is feeling better this morning. Eating cymraes toast and sitting up in bed, smiling. Reports pain is well controlled as rest. However she is unable to ambulate to bedside commode due to weakness and pain. Had appt with Dr. Rico scheduled for today. Current treatment consists of once monthly shots. Denies difficulty breathing, SOB, CP. - Objective MAR Reviewed: Yes Vital Signs & Weight: Vital Signs (12 hours) Temp Pulse Resp BP Pulse Ox 10/06/18 03:46 98.0 F 116 H 20 110/63 95 10/06/18 00:01 99.0 F 127 H 20 134/75 100 10/05/18 19:56 98.0 F 107 H 16 121/77 96 Weight Weight 97.522 kg I&O: 10/04/18 10/05/18 10/06/18 06:59 06:59 06:59 Intake Total 2370 Output Total 1600 Balance 770 Result Diagrams: 10/06/18 06:12 10/06/18 06:12 Phys Exam - Physical Examination Constitutional: NAD Respiratory: no wheezing, no rhonchi, clear to auscultation bilateral Cardiovascular: RRR, no significant murmur Gastrointestinal: soft, non-tender, no distention, positive bowel sounds trace edema Neurological: non-focal Psychiatric: normal affect Skin: normal turgor, cap refill <2 seconds Dx/Plan (1) Intractable pain Code(s): R52 - PAIN, UNSPECIFIED Status: Acute (2) Cancer-related pain Code(s): G89.3 - NEOPLASM RELATED PAIN (ACUTE) (CHRONIC) Status: Chronic (3) Breast cancer metastasized to bone Code(s): C50.919 - MALIGNANT NEOPLASM OF UNSP SITE OF UNSPECIFIED FEMALE BREAST ; C79.51 - SECONDARY MALIGNANT NEOPLASM OF BONE Status: Chronic Qualifiers: Laterality: left Qualified Code(s): C50.912 - Malignant neoplasm of unspecified site of left female breast; C79.51 - Secondary malignant neoplasm of bone (4) Constipation due to pain medication Code(s): K59.03 - DRUG INDUCED CONSTIPATION Status: Acute (5) Symptomatic anemia Code(s): D64.9 - ANEMIA, UNSPECIFIED Status: Acute (6) Tachycardia Code(s): R00.0 - TACHYCARDIA, UNSPECIFIED Status: Acute (7) HTN (hypertension) Code(s): I10 - ESSENTIAL (PRIMARY) HYPERTENSION Status: Chronic (8) Leukopenia Code(s): D72.819 - DECREASED WHITE BLOOD CELL COUNT, UNSPECIFIED Status: Chronic (9) Asthma Code(s): J45.909 - UNSPECIFIED ASTHMA, UNCOMPLICATED Status: Chronic Qualifiers: Asthma severity: mild - Plan Plan: 38YOF w/ a h/o stage IV b breast cancer w/ met to her pelvis, femur and liver who presented to the ED w/ a CC of intractable low back and hip pain that had gotten progressively worse over the course of the day to the point where she decided to come to the ED for further management. Intractable pain 2/2 stage IV breast CA with bony metastases: - EDI ms contin BID in addition to [place] 5 prn for pain control. Has been getting norco consistently. - Continue EDI bowel regimen - Pt reports pain well controlled at rest, worse with ambulation Symptomatic anemia: - Hgb of 6.8 s/p 2 units of PRBCs, now improved - Will continue to monitor vitals closely. Tachycardia: - Could be 2/2 multiple factors including volume depletion from decreased PO intake vs. anemia vs. pain vs. possible infection vs. PE. - Has improved from 130s. Still in 110s - CXR showed a L-sided consolidation vs. atelectasis vs. fluid collection. - PO intake improved, will d/c IVF - CTA read was limited but no obvious PE - Continue to monitor VS, afebrile Constipation: - Likely 2/2 narcotic use. - Continue EDI bowel regimen. May consider enema if no improvement - KUB significant for large stool burden in R colon. Physical Deconditioning - worsening over past few months - consult PT/OT Stage IV breast CA with bony metastases: - Aware, patient follows w/ Dr. Brown. Called office so he is aware she is here. - Will address pain as outlined above. - consulted palliative care Leukopenia, stable - Patient IC 2/2 chemotherapy w/ a WBC of 3.3 on presentation. - Will continue to monitor w/ AM CBC. HTN: - BPs WNL - Patient is not currently on any meds at home for this. - Will continue to monitor and treat PRN. Asthma: - Patient not on any home meds right now. - Will order albuterol PRN.
[2018-10-06 06:34] LABS: #Lymphocytes 0.8 thou/uL (1.20-3.40); #Monocytes 0.3 thou/uL (0.11-0.59); #Neutrophils 2.5 thou/uL (1.40-6.50); %Basophils 0.8 % (0.0-1.0); %Eosinophils 1.1 % (0.0-10.0); %Lymphocytes 21.7 % (21.0-51.0); %Monocytes 9.2 % (0.0-10.0); %Neutrophils 67.2 % (42.0-75.0); Hemoglobin 7.8 g/dL (12.0-16.0); Mean Corpuscular HGB CONC 34.6 g/dL (32.0-36.0); Mean Corpuscular Hemoglobin 29.5 pg (27.0-31.0); Mean Corpuscular Volume 85.4 fL (78.0-98.0); Mean Platelet Volume 9.3 fL (7.4-10.4); Platelet Count 165 thou/uL (130-400); RBC Distribution Width 19.1 % (11.5-14.5); Red Blood Cell (RBC) Count 2.64 mill/uL (4.20-5.40); White Blood Cell (WBC) Count 3.7 thou/uL (4.8-10.8)
[2018-10-06 06:40] LABS: Anion Gap 13 mmol/L (10-20); BUN (Urea Nitrogen) 9 mg/dL (7.0-18.7); Calc. Creatinine Clearance 143 mL/min (70-130); Calcium 10.2 mg/dL (7.8-10.44); Carbon Dioxide 24 mmol/L (22-29); Chloride 102 mmol/L (98-107); Estimated GFR-MDRD 78; Glucose 110 mg/dL (70-105); Sodium 135 mmol/L (136-145)
[2018-10-06] MEDS: Morphine ER 30 MG TAB PO SCH ×2 (08:04→20:32)
[2018-10-06] MEDS: Senokot S 8.6-50 MG TAB PO SCH ×2 (08:04→20:46)
[2018-10-06] MEDS: Polyethylene Glycol 3350 17 GM Packet PO SCH (08:06)
--- NOTE | 2018-10-06 10:36 | CON ---
DATE OF CONSULTATION: 10/05/2018 REASON FOR CONSULTATION: Breast cancer. HISTORY OF PRESENT ILLNESS: Ms. Bettencourt is a 38-year-old female, well known to our clinic, who was diagnosed with stage IIIA ER/KS-positive, HER2 negative invasive moderately differentiated carcinoma of the left breast. She underwent neoadjuvant chemotherapy. She had a modified radical mastectomy in April 2018. Her postop staging was stage IV ypTd4, ypN3a, ypM1. She underwent radiation therapy to her left breast, which was completed in June 2018. PET scan performed after treatment showed increased uptake in multiple bones including the spine, pelvis, proximal femur, left humerus, and ribs. There was also uptake noted in the hilar areas bilaterally and mediastinal lymph node. She was started on pain medication with tramadol and [place]. She was started on Ibrance oral chemotherapy as well as Faslodex and Zoladex. She was to be on Zometa after dental clearance. Over the last few weeks, she has been having difficulty obtaining her hydrocodone secondary to insurance issues. She normally takes 7.5 mg 1 to 2 every 4 hours for pain with the tramadol and ibuprofen. Over the last several days, she has gotten significantly worse, has become short of breath and essentially bedridden. She called 911 and presented to the emergency room for evaluation. CT angio of the chest was performed. There was no evidence of pulmonary embolism. She had a large left pleural effusion and bilateral parenchymal abnormalities that were consistent with pneumonia. She had widespread osseous metastatic disease with pathological fractures of numerous vertebral endplates of the lower thoracic spine. She also had pathological rib fractures. She was started on IV morphine and IV fluids. She is being admitted for intractable pain. The patient was found to be anemic with a hemoglobin of 6.8. She has been transfused 2 units of packed RBCs with improvement of hemoglobin to 8.3. PAST MEDICAL HISTORY: 1. Stage IV ER/KS positive, HER2 negative invasive carcinoma of the left breast. 2. Hyperlipidemia. 3. Asthma. PAST SURGICAL HISTORY: 1. Modified radical mastectomy of the left breast. 2. Mediport placement. 3. Cholecystectomy. ALLERGIES: PACLITAXEL. HOME MEDICATIONS: 1. Flexeril 10 mg t.i.d. 2. Zofran p.r.n. 3. Tramadol 50 mg p.r.n. 4. Tylenol Extra Strength 1000 mg q.6 hours p.r.n. 5. Hydrocodone 7.5 mg 1 to 2 q.4 hours p.r.n. pain. FAMILY HISTORY: Noncontributory. SOCIAL HISTORY: She is . Has 2 children. Lives with her spouse. No alcohol, tobacco, or illicit drug use. REVIEW OF SYSTEMS: 12-point review of systems is negative, except for noted in HPI. PHYSICAL EXAMINATION: VITAL SIGNS: Temperature is 98.3, pulse is 105, respiratory rate 21, BP is 136/104, she is 98% on 2 L nasal cannula. GENERAL: Well-developed, well-nourished female in moderate pain. HEENT: Normocephalic and atraumatic. Pupils equal and reactive to light. She has poor dentition. NECK: Supple. CV: Regular rate and rhythm. She is tachycardic. LUNGS: Clear anterior. ABDOMEN: Obese. Bowel sounds are positive. EXTREMITIES: No clubbing, cyanosis, or edema. SKIN: No rash. HEMATOLOGIC: No petechiae or purpura. NEUROLOGIC: Nonfocal. PSYCH: The patient is alert and oriented and appropriate. PERTINENT LABS AND X-RAYS: Current WBC is 3.4, hemoglobin 8.3, hematocrit 23.7, platelet counts are 190,000, 67% neutrophils, 22% lymphocytes. Sodium is 134, potassium 4.5, chloride 104, CO2 is 18, BUN is 12, creatinine 0.94, calcium is 10.4, total bilirubin is 0.5. AST is 33, ALT is 13, alk phos is 122, creatine kinase is 133, serum total protein is 7.8, albumin 3.8, globulin 4.0. Urine is negative for bacteria. ASSESSMENT: 1. Metastatic breast cancer. 2. Intractable pain. 3. Pleural effusion. 4. Possible infectious pneumonitis. 5. Anemia. DISCUSSION: The patient has been given IV morphine with improvement of her pain medication. She is not narcotic naive and we will begin long-acting MS Contin 30 mg with MSIR 15 mg for breakthrough pain. We will add antibiotics for her possible infectious pneumonitis or pneumonia. She is due for her Zoladex and Faslodex. We will give that prior to her going home. We need assistance with case management regarding palliative care and assistance at the house. Case was discussed with Dr. Rico. Thank you for the consult. Job ID: [id number]
[2018-10-06] MEDS ORDERED: Doxycycline 100 MG CAP PO SCH (12:00)
[2018-10-06] MEDS ORDERED: Amoxicillin/Potassium Clav 875 MG TAB PO SCH ×2 (12:00→21:00)
--- NOTE | 2018-10-06 12:23 | PRG ---
DATE OF SERVICE: 10/06/2018 SUBJECTIVE: Ms. Bettencourt's pain controlled, has improved. She has, however, developed some hypoxia, requiring 3 L nasal cannula. Her chest x-ray shows possible malignancies versus pneumonia. We appreciate the recommendations of Oncology. We will also involve Pulmonology given that this is likely going to hose turner to be a complex lung issue with metastatic cancer and pneumonia probably playing a role. In the event, Ms. Bettencourt does not complain of any shortness of breath nor does she appear to be in any acute distress at this time. Earlier this morning, she was tachycardic. Job ID: [id number]
[2018-10-06] MEDS ORDERED: Promethazine HCl 25 MG/ML VIAL IM/IV PRN (12:49)
[2018-10-06] MEDS: Ondansetron PF 4 MG/2 ML Vial IVP PRN (18:39)
[2018-10-06] MEDS: Amoxicillin/Potassium Clav 875 MG TAB PO SCH (20:32)
[2018-10-06] MEDS: Doxycycline 100 MG CAP PO SCH (20:45)
[2018-10-06] MEDS: Enoxaparin Sodium 40 MG/0.4 ML SYRINGE SC SCH (20:50)
--- NOTE | 2018-10-07 00:42 | CON ---
DATE OF CONSULTATION: HISTORY OF PRESENT ILLNESS: This is an unfortunate 38-year-old diagnosed with left breast cancer about a year ago, who underwent mastectomy, radiation and chemotherapy. Unfortunately, she developed metastatic disease that has evidently been not responsive to chemotherapy, although she has currently received 2 courses of a new agent recently. She was brought to the emergency room by EMS after her hvokxk-bt-paw noticed her complaining of severe shortness of breath. She was found to have a large left pleural effusion. She has also been having significant pain and had been on tramadol at home according to the [id number]-[id number]. PAST MEDICAL HISTORY: Otherwise significant for hypertension and asthma. PAST SURGICAL HISTORY: Left mastectomy, port placement in the right chest, and cholecystectomy. SOCIAL HISTORY: She is , has 2 children. Lives with her and children. REVIEW OF SYSTEMS: The patient has been unable to lie flat in bed for several weeks and sleeps on the couch sitting up due to dyspnea. She has had significant problems with pain due to multiple bony metastases. PHYSICAL EXAMINATION: GENERAL APPEARANCE: A young female, somewhat sleepy due to recent medication. VITAL SIGNS: Her heart rate is 120, and blood pressure is 110 systolic. HEAD, EYES, EARS, NOSE, THROAT: Multiple carious teeth. NECK: No adenopathy. No bruits. CARDIAC: Tachycardia. No murmurs. LUNGS: No wheezes. Does have breath sounds bilaterally anteriorly. She has radiation changes at her mastectomy site, but the skin otherwise is soft other than its pigmentation. She has a significant amount of adipose tissue. ABDOMEN: Obese, nontender. EXTREMITIES: She has trace pedal edema bilaterally. LABORATORY DATA: Admitting hemoglobin 6.8, currently 7.8, status post 2 units of blood a couple of days ago, and a third unit being transfused today. Chemistries within normal. Renal function with evidence of acidosis that has resolved. I have had a long discussion with the patient and [id number]-[id number]. I have spoken with Dr. Hodge and Divya Johnson. Given her inability to lay flat at home and the ability of her jqkvfr-[id number] to be able to the PleurX catheter drainage system, I think we will plan on thoracoscopic placement of the PleurX catheter tomorrow and informed consent has been obtained from family and will be obtained from the patient as she awakens from her medication. Job ID: [id number]
--- NOTE | 2018-10-07 03:08 | CON ---
DATE OF CONSULTATION: 10/06/2018 SUBJECTIVE: Ms. Bettencourt is a 38-year-old female with widely metastatic breast cancer. She has now developed a pleural effusion. She came in because her Medicaid [employer] would not authorize the refill of her pain medications. An incidental finding was that she was starting to get short of breath with exertion. She had a large left pleural effusion. PAST MEDICAL HISTORY: Remarkable for; 1. Lipid disorder. 2. Asthma. 3. Modified radical mastectomy of her left breast. 4. Placement of Mediport. 5. Cholecystectomy. ALLERGIES: REPORTED TO PACLITAXEL. MEDICATIONS: Prior to admission she is on; 1. Flexeril. 2. Zofran. 3. Tramadol. 4. Hydrocodone. The hydrocodone is which she could not get refill. FAMILY HISTORY: Negative for lung disease in early age. SOCIAL HISTORY: She has 2 children, she is . She is a nonsmoker, nondrinker, non-drug user. REVIEW OF SYSTEMS: A 10-point review of systems completed, otherwise negative. PHYSICAL EXAMINATION: GENERAL: Ms. Bettencourt is a 38-year-old female with widely metastatic breast cancer. VITAL SIGNS: She is afebrile. Heart rate is in the one teens, respiratory rate is 20, oximetry is 95%. She has not been febrile since she has been admitted. HEENT: Pupils are equal. Sclerae are anicteric. NECK: Supple. LUNGS: Remarkable for absent breath sounds on the left. HEART: Regular rhythm. S1 and S2 are normal. ABDOMEN: Soft and nontender. EXTREMITIES: Without clubbing, cyanosis, or edema. LABORATORY DATA: White count is 3.7, hemoglobin 7.8, platelets 165. Sodium 135 , potassium 4, chloride 102, bicarb 24, BUN 9, creatinine 0.82. IMPRESSION: Pleural effusion, most likely malignant. The most expeditious way to work through this in this setting with her difficulties with transport, etc., and Medicaid would be to just proceed with thoracoscopy with pleural biopsies followed by placement of a PleurX drainage catheter. Normally, I would tap her first, but I think in this setting given the high likelihood that this is malignant, I think this is the best way to proceed. It is very unlikely that she has an infected pleural space or pneumonia in my opinion after reviewing her chest radiograph and her chest CT. She just has a large pleural effusion on the left, a small one on the right and multiple obvious bony metastases. She did not have thromboembolic disease, although it was a suboptimal study. Certainly could have lung parenchymal metastasis as well. At some point in time , once fluid is drained, we might repeat a CT of her chest in a month or so. This is a 70 minute consult, with greater than 50% of time spent on unit in coordination of care. Job ID: [id number] MTDD
[2018-10-07] MEDS: Lactated Ringer's 1,000 ML IV SCH (04:14)
--- NOTE | 2018-10-07 05:46 | PDOC.FM ---
- Subjective Subjective: Mrs. Bettencourt returned from her procedure shortly before seeing her. She was laying in bed, reported feeling tired. No other complaints. - Objective MAR Reviewed: Yes Vital Signs & Weight: Vital Signs (12 hours) Temp Pulse Pulse Resp BP BP Pulse Ox 10/07/18 04:22 97.6 F 84 18 111/71 94 L 10/07/18 04:00 94 L 10/07/18 00:08 98 10/06/18 23:56 98.5 F 115 H 18 117/64 98 10/06/18 22:06 100.9 F H 116 H 18 115/78 95 10/06/18 20:06 99.2 F 124 H 18 124/72 10/06/18 18:58 100.1 F H 124 H 18 122/72 95 Weight Weight 97.522 kg I&O: 10/05/18 10/06/18 10/07/18 06:59 06:59 06:59 Intake Total 2370 3259 Output Total 1600 800 Balance 770 2459 Result Diagrams: 10/07/18 05:56 10/06/18 06:12 Phys Exam - Physical Examination Constitutional: NAD (tired in post-op) Respiratory: clear to auscultation bilateral surgical bandage L lateral side, clean and dry Cardiovascular: RRR, no significant murmur Gastrointestinal: soft, non-tender, positive bowel sounds Musculoskeletal: no edema Neurological: non-focal Skin: normal turgor, cap refill <2 seconds Dx/Plan (1) Intractable pain Code(s): R52 - PAIN, UNSPECIFIED Status: Acute (2) Cancer-related pain Code(s): G89.3 - NEOPLASM RELATED PAIN (ACUTE) (CHRONIC) Status: Chronic (3) Breast cancer metastasized to bone Code(s): C50.919 - MALIGNANT NEOPLASM OF UNSP SITE OF UNSPECIFIED FEMALE BREAST ; C79.51 - SECONDARY MALIGNANT NEOPLASM OF BONE Status: Chronic Qualifiers: Laterality: left Qualified Code(s): C50.912 - Malignant neoplasm of unspecified site of left female breast; C79.51 - Secondary malignant neoplasm of bone (4) Constipation due to pain medication Code(s): K59.03 - DRUG INDUCED CONSTIPATION Status: Acute (5) Symptomatic anemia Code(s): D64.9 - ANEMIA, UNSPECIFIED Status: Acute (6) Tachycardia Code(s): R00.0 - TACHYCARDIA, UNSPECIFIED Status: Acute (7) HTN (hypertension) Code(s): I10 - ESSENTIAL (PRIMARY) HYPERTENSION Status: Chronic (8) Leukopenia Code(s): D72.819 - DECREASED WHITE BLOOD CELL COUNT, UNSPECIFIED Status: Chronic (9) Asthma Code(s): J45.909 - UNSPECIFIED ASTHMA, UNCOMPLICATED Status: Chronic Qualifiers: Asthma severity: mild - Plan Plan: 38YOF w/ a h/o stage IV b breast cancer w/ met to her pelvis, femur and liver who presented to the ED w/ a CC of intractable low back and hip pain that had gotten progressively worse over the course of the day to the point where she decided to come to the ED for further management. Intractable pain 2/2 stage IV breast CA with bony metastases: - EDI ms contin BID in addition to morphine prn - Continue EDI bowel regimen, has still not had BM - Pt reports pain well controlled at rest, worse with ambulation Pleural effusion - Dr. Hodge and Dr. Contreras on the case. - likely malignant etiology - PleurX catheter placed 10/07 - CT showed L pleural effusion, atelectasis, RLL opacities/atelectasis Symptomatic anemia: - Hgb of 6.8 s/p 2 units of PRBCs, now improved. Hgb 7.8, transfused 1 u prbc -->9.0 - Will continue to monitor vitals closely. Tachycardia, improved - Has improved from 130s at presentation, now pulse in 80s - CTA read was limited but no obvious PE - Continue to monitor VS, afebrile Constipation: - Likely 2/2 narcotic use. - Continue EDI bowel regimen. May consider enema if no improvement - KUB significant for large stool burden in R colon. Physical Deconditioning - worsening over past few months - consult PT/OT Stage IV breast CA with bony metastases: - Aware, patient follows w/ Dr. Brown. Called office so he is aware she is here. - Will address pain as outlined above. - consulted palliative care Leukopenia, stable - Patient IC 2/2 chemotherapy w/ a WBC of 3.3 on presentation. - Will continue to monitor w/ AM CBC. HTN: - BPs WNL - Patient is not currently on any meds at home for this. - Will continue to monitor and treat PRN. Asthma: - Patient not on any home meds right now. - Will order albuterol PRN. Dispo: pending clinical improvement. Palliative care and case management on case.
[2018-10-07] MEDS ORDERED: Bupivacaine HCl 0.5%/Epinephrine 1:200,000/PF 30 ml Vial ONE (06:27)
[2018-10-07 06:29] LABS: #Eosinphils 0.1 thou/uL (0.0-0.7); #Lymphocytes 0.6 thou/uL (1.20-3.40); #Monocytes 0.3 thou/uL (0.11-0.59); #Neutrophils 2.4 thou/uL (1.40-6.50); %Basophils 0.9 % (0.0-1.0); %Eosinophils 1.6 % (0.0-10.0); %Lymphocytes 18.7 % (21.0-51.0); %Neutrophils 70.8 % (42.0-75.0); Mean Corpuscular HGB CONC 33.5 g/dL (32.0-36.0); Mean Corpuscular Hemoglobin 28.5 pg (27.0-31.0); Mean Corpuscular Volume 85.3 fL (78.0-98.0); Mean Platelet Volume 9.6 fL (7.4-10.4); Platelet Count 174 thou/uL (130-400); RBC Distribution Width 18.1 % (11.5-14.5); Red Blood Cell (RBC) Count 3.16 mill/uL (4.20-5.40); White Blood Cell (WBC) Count 3.4 thou/uL (4.8-10.8)
[2018-10-07] MEDS ORDERED: Fentanyl 100 MCG/2 ML VIAL ONE (07:09)
[2018-10-07] MEDS ORDERED: HYDROmorphone 2 MG/ML VIAL ONE (07:09)
[2018-10-07] MEDS ORDERED: Midazolam HCl 2 mg/2 ml Vial ONE (07:19)
[2018-10-07] MEDS ORDERED: Ciprofloxacin 0.2% Otic 1 DROP CON ONE (07:30)
[2018-10-07] MEDS ORDERED: SUGAMMADEX SODIUM 200 MG/2 ML VIAL ONE (08:28)
[2018-10-07] MEDS ORDERED: Ondansetron HCl/PF 4 MG/2 ML Vial IVP PRN (08:41)
[2018-10-07] MEDS ORDERED: PACU-Morphine 4MG/ML VIAL SLOW IVP PRN (08:41)
[2018-10-07] MEDS ORDERED: HYDROmorphone 2 MG/ML VIAL SLOW IVP PRN (08:41)
[2018-10-07] MEDS ORDERED: Promethazine HCl 25 MG/ML VIAL SLOW IVP PRN (08:41)
[2018-10-07] MEDS ORDERED: Promethazine HCl 25 MG/ML VIAL IM PRN (08:41)
--- NOTE | 2018-10-07 10:25 | RAD ---
PORTABLE CHEST: Date: 10/07/18 HISTORY: Post catheter placement. COMPARISON: 10/04/18 chest x-ray and a CT angio of chest performed 10/05/18. FINDINGS: Heart size appears slightly enlarged. There are bibasilar lung changes consistent with some atelectas is or infiltrate. Changes appear more confluent in the right base. Right-sided MediPort type catheter is noted. On the left side, there is a left-sided chest tube. The tube is curved with the tip direct ed towards the apex. There has been a reduction in the left pleural effusion. Surgical clips are seen in the left axilla. IMPRESSION: 1. Left-sided chest tube in place. Reduction in left-sided pleural effusion. 2. Bibasilar atelectasis or infiltrate. POS: TPC
[2018-10-07] MEDS: Morphine ER 30 MG TAB PO SCH ×2 (10:33→20:05)
[2018-10-07] MEDS: Amoxicillin/Potassium Clav 875 MG TAB PO SCH ×2 (10:34→20:05)
[2018-10-07] MEDS: Polyethylene Glycol 3350 17 GM Packet PO SCH (10:34)
[2018-10-07] MEDS: Senokot S 8.6-50 MG TAB PO SCH ×2 (10:34→20:04)
[2018-10-07] MEDS: Doxycycline 100 MG CAP PO SCH ×2 (10:34→20:05)
[2018-10-07] MEDS: Ondansetron PF 4 MG/2 ML Vial IVP PRN (10:35)
--- NOTE | 2018-10-07 11:52 | PRG ---
DATE OF SERVICE: 10/07/2018 SUBJECTIVE: Sg has undergone a PleurX catheter placement this morning. OBJECTIVE: VITAL SIGNS: Stable. There is no change overall. The process begins educating her gjhxih-or-tzo on how to take care of the catheter. The fkvwlx-wl-zrp is well versed in healthcare issues based on past family experiences. LABORATORY DATA: Her white count is 3.4, hemoglobin 9, and platelets 174. Electrolytes were unremarkable yesterday and none were done today. IMPRESSION: Metastatic breast cancer, presumed to be involving the pleural space now. PleurX catheter has been placed. Job ID: [id number]
--- NOTE | 2018-10-07 12:24 | PRG ---
DATE OF SERVICE: 10/07/2018 ADDENDUM: Addendum to the note of Dr. Dasia Chow. Pulmonary was consulted yesterday regarding the pleural effusion. The patient was seen by Dr. Hodge, who recommended that a PleurX drainage catheter be placed. The patient has just returned from that procedure and is resting comfortably. We will continue to follow with the multiple services on Ms. Bettencourt. Her pain control seems to be adequate. We are continuing treatment also for possible pneumonitis. Job ID: [id number]
--- NOTE | 2018-10-07 13:17 | OP ---
DATE OF PROCEDURE: 10/07/2018 PREOPERATIVE DIAGNOSIS: Malignant left pleural effusion. POSTOPERATIVE DIAGNOSIS: Malignant left pleural effusion. PROCEDURE PERFORMED: Left thoracoscopy with placement of a PleurX catheter, aspiration of 750 mL of yellow fluid. DESCRIPTION OF PROCEDURE: After adequate anesthesia had been obtained with a double lumen tube, position confirmed with bronchoscopy, the patient was placed in the right lateral decubitus position and padded. Prepping and draping were carried out. Marcaine 0.5% was then infiltrated. A small incision was made and trocar introduced, scope placed. Second counterincision was made after aspirating fluid through the initial port site. Using needle from the PleurX catheter under thoracoscopic view, the needle was inserted. Dilator placed and then the catheter brought through its tunnel and inserted into the chest. Following this, lung was reinflated and suction applied and minimal amount of fluid was removed at that point. The Dacron cuff was about 1 cm deep to the skin incision to ensure that all of the holes from the PleurX catheter were within the lumen of the pleural space. The patient tolerated the procedure well and chest x-rays to be performed in the recovery room. Job ID: [id number]
[2018-10-07] MEDS: Morphine IR Tab 15 MG TAB PO PRN ×2 (14:57→19:04)
[2018-10-07] MEDS ORDERED: Dexamethasone 20 MG/5 ML VIAL ONE (15:57)
[2018-10-07] MEDS ORDERED: Ondansetron PF 4 MG/2 ML Vial ONE (15:57)
[2018-10-07] MEDS ORDERED: PROPOFOL 200 MG/20 ML VIAL ONE (15:57)
[2018-10-07] MEDS ORDERED: Lidocaine 1% PF 5 ML VIAL ONE (15:57)
[2018-10-07] MEDS ORDERED: PHENYLEPHRINE-NS 100 MCG/ML 10 ML SYRINGE ONE (15:57)
[2018-10-07] MEDS ORDERED: Glycopyrrolate 0.2 MG/ML 5 ML SYRINGE ONE (15:57)
[2018-10-07] MEDS: Enoxaparin Sodium 40 MG/0.4 ML SYRINGE SC SCH (20:09)
--- NOTE | 2018-10-08 05:50 | PDOC.FM ---
- Subjective Subjective: Pt. states that her pain is gone this morning. She has a very positive attitude this morning. She denies any current chest pain, shortness of breath, nausea, or vomiting. She reports no BM today, but denies abdominal pain. - Objective MAR Reviewed: Yes Vital Signs & Weight: Vital Signs (12 hours) Temp Pulse Resp BP Pulse Ox 10/08/18 04:03 98.1 F 93 16 114/68 98 10/08/18 04:00 98 10/08/18 00:00 91 L 10/07/18 23:50 98.4 F 104 H 16 109/70 91 L 10/07/18 19:00 97.7 F 116 H 18 109/72 91 L Weight Weight 97.522 kg I&O: 10/06/18 10/07/18 10/08/18 06:59 06:59 06:59 Intake Total 2370 3259 640 Output Total 1600 800 Balance 770 2459 640 Result Diagrams: 10/07/18 05:56 10/06/18 06:12 <Robert Swift - Last Filed: 10/08/18 11:05> - Objective Vital Signs & Weight: Vital Signs (12 hours) Temp Pulse Resp BP Pulse Ox 10/08/18 07:57 98 F 99 18 116/59 L 94 L 10/08/18 04:03 98.1 F 93 16 114/68 98 10/08/18 04:00 98 Weight Weight 97.522 kg I&O: 10/07/18 10/08/18 10/09/18 06:59 06:59 06:59 Intake Total 3259 1040 Output Total 800 Balance 2459 1040 Result Diagrams: 10/07/18 05:56 10/06/18 06:12 <Marilin Gale - Last Filed: 10/08/18 14:24> Phys Exam - Physical Examination Constitutional: NAD HEENT: moist MMs Neck: no JVD good air movement, mild crackles in bases Cardiovascular: RRR, no significant murmur Gastrointestinal: soft, non-tender, no distention, positive bowel sounds Musculoskeletal: pulses present, edema present (mild non-pitting edema in bilateral extremities) Neurological: non-focal, moves all 4 limbs Psychiatric: normal affect, A&O x 3 Skin: cap refill <2 seconds <Robert Swift - Last Filed: 10/08/18 11:05> Dx/Plan (1) Pleural effusion Code(s): J90 - PLEURAL EFFUSION, NOT ELSEWHERE CLASSIFIED Status: Acute (2) Constipation due to pain medication Code(s): K59.03 - DRUG INDUCED CONSTIPATION Status: Acute (3) Intractable pain Code(s): R52 - PAIN, UNSPECIFIED Status: Acute (4) Symptomatic anemia Code(s): D64.9 - ANEMIA, UNSPECIFIED Status: Acute (5) Tachycardia Code(s): R00.0 - TACHYCARDIA, UNSPECIFIED Status: Acute (6) Breast cancer metastasized to bone Code(s): C50.919 - MALIGNANT NEOPLASM OF UNSP SITE OF UNSPECIFIED FEMALE BREAST ; C79.51 - SECONDARY MALIGNANT NEOPLASM OF BONE Status: Chronic Qualifiers: Laterality: left Qualified Code(s): C50.912 - Malignant neoplasm of unspecified site of left female breast; C79.51 - Secondary malignant neoplasm of bone (7) HTN (hypertension) Code(s): I10 - ESSENTIAL (PRIMARY) HYPERTENSION Status: Chronic - Plan Plan: This is a 38 yo female with a pmh of stage IV b breast cancer w/ mets to her pelvis, femur, and liver, as well as HTN Intractable pain 2/2 stage IV breast CA with bony metastases -Pain is better controlled with EDI ms contin BID and PRN morphine PO -Continue Bowel regimen Acute hypoxic respiratory failure likely 2/2 pleural effusion -Pt. has had oxygen requirement since admission -Pt is currently on 94% on 3 L nc Pleural effusion -POD 1 PleurX cath placed by Dr. Contreras -Dr. Hodge on the case -Likely 2/2 malignancy -CT was positive for L pleural effusion, atelectasis, RLL opacities/atelectasis Symptomatic anemia, improving -Initially Hgb 6.8--> 8.3 s/p 2 units, Then 7.8--> 9.0 s/p 1 unit -Continues to be tachycardic 2/2 anemia vs pain vs pleural effusion -Continues to have oxygen demand, improving Tachycardia -Overnight, remained elevated 93-116 -CTA limited but no obvious PT -Continue to monitor PE Constipation -Likely 2/2 narcotic use and decreased movement -Continue bowel regiment -KUB on 10/04 shows large stool burden in R colon, we are repeating KUB today and will consider emema if unchanged from previous exam. Physical deconditioning -PT/OT Stage IV breast CA with bony metastases -Follows with Dr. Rico, has been notified -Address pain associated as above -Palliative care consulted, will appreciate their recommendations, does not express current desire for hospice Leukopenia, stable -Pt 2/2 chemotherapy w/ WBC of 3.3 on admission. Currently 3.4 -Continue to monitor HTN -BP has been normal during time here -Continue to monitor and treat PRN Asthma -PRN albuterol <Robert Swift - Last Filed: 10/08/18 11:05> Attending Addendum - Attending Addendum Date/Time: 10/08/18 0570 I personally evaluated the patient and discussed the management with Dr. Swift. I agree with the History, Examination, Assessment and Plan documented above with any addition or exceptions noted below. The patient states her pain is better controlled. She received her chemo this morning. Pt still has constipation, repeating kub this morning. Pt on multiple meds for bowel regimen, may try enema. <Marilin Gale - Last Filed: 10/08/18 14:24>
[2018-10-08] MEDS ORDERED: Goserelin Acetate 3.6 MG KIT SC SCH (09:00)
[2018-10-08] MEDS: Amoxicillin/Potassium Clav 875 MG TAB PO SCH ×2 (09:29→20:16)
[2018-10-08] MEDS: Morphine ER 30 MG TAB PO SCH ×2 (09:29→20:17)
[2018-10-08] MEDS: Doxycycline 100 MG CAP PO SCH ×2 (09:29→20:16)
[2018-10-08] MEDS: Senokot S 8.6-50 MG TAB PO SCH ×2 (09:29→20:16)
[2018-10-08] MEDS: Polyethylene Glycol 3350 17 GM Packet PO SCH (09:31)
--- NOTE | 2018-10-08 12:40 | PRG ---
DATE OF SERVICE: 10/08/2018 SUBJECTIVE: The patient says she is doing relatively okay. She is having a PleurX catheter drained intermittently. OBJECTIVE: VITAL SIGNS: On exam, temperature 98.0, pulse 99, respirations 18, O2 sat 94% on 3 L, and blood pressure 116/59. HEENT: Unremarkable. NECK: No JVD. LUNGS: She has indwelling catheter in the left chest. She has slight diminished breath sounds in the left base compared to right. CARDIAC: S1 and S2, regular. ABDOMEN: Soft. EXTREMITIES: No edema. LABORATORY DATA: No new labs were done today. ASSESSMENT: Status post PleurX catheter insertion in the left pleural space for metastatic breast cancer with pleural effusion. PLAN: Increase activity as tolerated. Hopefully, she will be able to go home soon. Job ID: [id number]
--- NOTE | 2018-10-08 13:24 | RAD ---
KUB: DATE: 10/08/18 INDICATION: History of constipation. COMPARISON: Prior exam dated 10/04/18. FINDINGS: There is a moderate amount of retained stool seen within the right hemicolon, which is not appreciabl y changed from the comparison examination. Gas-filled loops of small bowel are seen within the centra l abdomen. Gas-filled stomach is now present, slightly more prominent on the prior exam. There is bib asilar atelectasis. No acute osseous abnormality is evident. There are cholecystectomy clips within t he right upper quadrant of the abdomen. There are scattered areas of sclerosis involving the osseous structures, suspicious for osseous metastatic disease. IMPRESSION: Moderate amount of retained stool within the colon. POS: ELAINE
[2018-10-08 14:43] LABS: Hemoglobin 9.6 g/dL (12.0-16.0); Mean Corpuscular HGB CONC 33.2 g/dL (32.0-36.0); Mean Corpuscular Volume 87.3 fL (78.0-98.0); Mean Platelet Volume 9.2 fL (7.4-10.4); Platelet Count 235 thou/uL (130-400); RBC Distribution Width 17.9 % (11.5-14.5); White Blood Cell (WBC) Count 4.7 thou/uL (4.8-10.8)
[2018-10-08] MEDS: Enoxaparin Sodium 40 MG/0.4 ML SYRINGE SC SCH (20:18)
[2018-10-08] MEDS: Morphine IR Tab 15 MG TAB PO PRN (22:43)
[2018-10-09] MEDS: Morphine IR Tab 15 MG TAB PO PRN ×4 (02:16→23:20)
--- NOTE | 2018-10-09 05:14 | PDOC.FM ---
- Subjective Subjective: Pt reports her cancer pain is controlled this morning however she reports that her bed is becoming more and more uncomfortable. She denies any chest pain, sob , nausea, or vomiting. She states that she wants to go home. - Objective MAR Reviewed: Yes Vital Signs & Weight: Vital Signs (12 hours) Temp Pulse Resp BP Pulse Ox 10/09/18 04:00 94 L 10/09/18 03:27 98.6 F 117 H 16 109/69 94 L 10/08/18 19:25 97.7 F 104 H 16 99/55 L 96 Weight Weight 97.522 kg I&O: 10/07/18 10/08/18 10/09/18 06:59 06:59 06:59 Intake Total 3259 1040 2320 Output Total 800 Balance 2459 1040 2320 Result Diagrams: 10/08/18 14:34 10/06/18 06:12 <Robert Swift - Last Filed: 10/09/18 09:22> - Objective Vital Signs & Weight: Vital Signs (12 hours) Temp Pulse Resp BP Pulse Ox 10/09/18 11:00 117 H 20 134/62 10/09/18 08:00 98.1 F 119 H 22 H 119/78 94 L 10/09/18 04:00 94 L 10/09/18 03:27 98.6 F 117 H 16 109/69 94 L Weight Weight 97.522 kg I&O: 10/08/18 10/09/18 10/10/18 06:59 06:59 06:59 Intake Total 1040 2720 1 Balance 1040 2720 1 Result Diagrams: 10/08/18 14:34 10/06/18 06:12 <Marilin Gale - Last Filed: 10/09/18 15:23> Phys Exam - Physical Examination Constitutional: NAD HEENT: moist MMs Neck: no JVD Respiratory: no wheezing mild crackles in bilateral bases Cardiovascular: RRR, no significant murmur, no rub Gastrointestinal: soft, non-tender, no distention, positive bowel sounds Musculoskeletal: no edema, pulses present Neurological: non-focal, moves all 4 limbs Psychiatric: normal affect, A&O x 3 Skin: cap refill <2 seconds <Robert Swift - Last Filed: 10/09/18 09:22> Dx/Plan (1) Pleural effusion Code(s): J90 - PLEURAL EFFUSION, NOT ELSEWHERE CLASSIFIED Status: Acute (2) Constipation due to pain medication Code(s): K59.03 - DRUG INDUCED CONSTIPATION Status: Acute (3) Intractable pain Code(s): R52 - PAIN, UNSPECIFIED Status: Acute (4) Symptomatic anemia Code(s): D64.9 - ANEMIA, UNSPECIFIED Status: Acute (5) Tachycardia Code(s): R00.0 - TACHYCARDIA, UNSPECIFIED Status: Acute (6) Breast cancer metastasized to bone Code(s): C50.919 - MALIGNANT NEOPLASM OF UNSP SITE OF UNSPECIFIED FEMALE BREAST ; C79.51 - SECONDARY MALIGNANT NEOPLASM OF BONE Status: Chronic Qualifiers: Laterality: left Qualified Code(s): C50.912 - Malignant neoplasm of unspecified site of left female breast; C79.51 - Secondary malignant neoplasm of bone (7) HTN (hypertension) Code(s): I10 - ESSENTIAL (PRIMARY) HYPERTENSION Status: Chronic - Plan Plan: This is a 38 yo female with a pmh of stage IV b breast cancer w/ mets to her pelvis, femur, and liver, as well as HTN Intractable pain 2/2 stage IV breast CA with bony metastases -Pain is better controlled with EDI ms contin BID and PRN morphine PO -Continue Bowel regimen, with the addition of movantik Acute hypoxic respiratory failure likely 2/2 pleural effusion -Pt. has had oxygen requirement since admission -Pt is currently on 94% on 3 L nc -We will be starting the processes to allow pt home O2. Pleural effusion -POD 2 PleurX cath placed by Dr. Contreras -Dr. Hodge on the case -Likely 2/2 malignancy -CT was positive for L pleural effusion, atelectasis, RLL opacities/atelectasis Symptomatic anemia, improving -Initially Hgb 6.8--> 8.3 s/p 2 units, Then 7.8--> 9.0 s/p 1 unit, currently 9.6 -Continues to be tachycardic 2/2 anemia vs pain vs pleural effusion -Continues to have oxygen demand, improving Tachycardia -Overnight, remained elevated 104-117 -CTA limited but no obvious PT -Continue to monitor PE Constipation -Likely 2/2 narcotic use and decreased movement -Continue bowel regiment -KUB on 10/04 shows large stool burden in R colon, repeat KUB shows some positive change but not large amount of stool in left colon. We are starting movantik for opioid induced constipation Physical deconditioning -PT/OT Stage IV breast CA with bony metastases -Follows with Dr. Rico, has been notified -Address pain associated as above -Palliative care consulted, will appreciate their recommendations, does not express current desire for hospice Leukopenia, stable -Pt 2/2 chemotherapy w/ WBC of 3.3 on admission. Currently 4.7 -Continue to monitor HTN -BP has been normal during time here off medications -Continue to monitor and treat PRN Asthma -PRN albuterol <Robert Swift - Last Filed: 10/09/18 09:22> Attending Addendum - Attending Addendum Date/Time: 10/09/18 0722 I personally evaluated the patient and discussed the management with Dr. Swift. I agree with the History, Examination, Assessment and Plan documented above with any addition or exceptions noted below. Pt's pain is better controlled. She will need oxygen on discharge. Anticipate home in next 1-2 days. <Marilin Gale - Last Filed: 10/09/18 15:23>
[2018-10-09] MEDS: Promethazine 25 MG TAB PO PRN (05:59)
[2018-10-09] MEDS: Ondansetron PF 4 MG/2 ML Vial IVP PRN ×2 (08:01→23:04)
[2018-10-09] MEDS: Amoxicillin/Potassium Clav 875 MG TAB PO SCH ×2 (09:22→20:32)
[2018-10-09] MEDS: Doxycycline 100 MG CAP PO SCH ×2 (09:22→20:32)
[2018-10-09] MEDS: Morphine ER 30 MG TAB PO SCH ×2 (09:22→20:33)
[2018-10-09] MEDS: Polyethylene Glycol 3350 17 GM Packet PO SCH (09:23)
[2018-10-09] MEDS: Senokot S 8.6-50 MG TAB PO SCH ×2 (09:23→20:33)
[2018-10-09] MEDS: Enoxaparin Sodium 40 MG/0.4 ML SYRINGE SC SCH (20:34)
--- NOTE | 2018-10-10 05:40 | PDOC.FM ---
- Subjective Subjective: Pt states she is feeling better today. Her pain is minimal this morning. She denies SOB, chest pain, or nausea/vomiting. - Objective MAR Reviewed: Yes Vital Signs & Weight: Vital Signs (12 hours) Temp Pulse Resp BP Pulse Ox 10/10/18 04:08 98.7 F 122 H 18 102/71 95 10/10/18 04:00 95 10/10/18 00:00 95 10/09/18 23:00 122 H 20 96 10/09/18 19:39 98.2 F 120 H 16 110/78 95 10/09/18 18:22 98.6 F 117 H 22 H 137/83 94 L Weight Weight 97.522 kg I&O: 10/08/18 10/09/18 10/10/18 06:59 06:59 06:59 Intake Total 1040 2720 1 Output Total 425 Balance 1040 2720 -424 Result Diagrams: 10/08/18 14:34 10/06/18 06:12 Phys Exam - Physical Examination Constitutional: NAD Neck: no JVD Respiratory: no wheezing, clear to auscultation bilateral Cardiovascular: RRR, no significant murmur Gastrointestinal: soft, non-tender, no distention, positive bowel sounds Musculoskeletal: no edema, pulses present Neurological: moves all 4 limbs Psychiatric: normal affect, A&O x 3 Dx/Plan (1) Pleural effusion Code(s): J90 - PLEURAL EFFUSION, NOT ELSEWHERE CLASSIFIED Status: Acute (2) Constipation due to pain medication Code(s): K59.03 - DRUG INDUCED CONSTIPATION Status: Acute (3) Intractable pain Code(s): R52 - PAIN, UNSPECIFIED Status: Acute (4) Symptomatic anemia Code(s): D64.9 - ANEMIA, UNSPECIFIED Status: Acute (5) Tachycardia Code(s): R00.0 - TACHYCARDIA, UNSPECIFIED Status: Acute (6) Breast cancer metastasized to bone Code(s): C50.919 - MALIGNANT NEOPLASM OF UNSP SITE OF UNSPECIFIED FEMALE BREAST ; C79.51 - SECONDARY MALIGNANT NEOPLASM OF BONE Status: Chronic Qualifiers: Laterality: left Qualified Code(s): C50.912 - Malignant neoplasm of unspecified site of left female breast; C79.51 - Secondary malignant neoplasm of bone (7) HTN (hypertension) Code(s): I10 - ESSENTIAL (PRIMARY) HYPERTENSION Status: Chronic - Plan Plan: This is a 38 yo female with a pmh of stage IV b breast cancer w/ mets to her pelvis, femur, and liver, as well as HTN Intractable pain 2/2 stage IV breast CA with bony metastases -Pain is better controlled with EDI ms contin BID and PRN morphine PO -Continue Bowel regimen, with the addition of movantik Acute hypoxic respiratory failure likely 2/2 pleural effusion -Pt. has had oxygen requirement since admission -Pt is improving some with sats at 95-96 on 3L nc -We will continue the processes to allow pt home O2. Pleural effusion -POD 3 PleurX cath placed by Dr. Contreras -Dr. Hodge on the case -Likely 2/2 malignancy -CT was positive for L pleural effusion, atelectasis, RLL opacities/atelectasis Symptomatic anemia, improving -Stable -Continues to be tachycardic likely 2/2 pleural effusion -Continues to have oxygen demand, improving Tachycardia -Overnight, remained elevated in the 120s -CTA limited but no obvious PT -Continue to monitor PE Constipation -Likely 2/2 narcotic use and decreased movement -Continue bowel regiment -KUB on 10/04 shows large stool burden in R colon, repeat KUB shows some positive change but not large amount of stool in left colon. We are starting movantik for opioid induced constipation Physical deconditioning -PT/OT Stage IV breast CA with bony metastases -Follows with Dr. Rico, has been notified -Address pain associated as above -Palliative care consulted, will appreciate their recommendations, does not express current desire for hospice at this time Leukopenia, stable -Pt 2/2 chemotherapy w/ WBC of 3.3 on admission. Last check was 4.7 -Continue to monitor HTN -BP has been normal during time here off medications -Continue to monitor and treat PRN Asthma -PRN albuterol
--- NOTE | 2018-10-10 07:49 | PRG ---
DATE OF SERVICE: 10/09/2018 SUBJECTIVE: Ms. Bettencourt did not have much to say this morning. She appears comfortable. She says she has not required drainage from her PleurX catheter yet. OBJECTIVE: VITAL SIGNS: On exam; temperature 98.1, pulse 119, respirations 20, O2 saturation 94% on 3 L, and blood pressure 119/78. HEENT: Unremarkable. NECK: No JVD. LUNGS: Diminished breath sounds in the left compared to right. CARDIAC: S1 and S2. Regular. ABDOMEN: Soft. EXTREMITIES: No edema. ASSESSMENT: 1. Metastatic breast cancer with left pleural effusion. 2. Status post PleurX catheter placement. PLAN: She needs to be taught how to use the PleurX catheter. After that, she can probably go home with home health. Job ID: [id number]
[2018-10-10] MEDS: Senokot S 8.6-50 MG TAB PO SCH ×2 (08:30→20:14)
[2018-10-10] MEDS: Amoxicillin/Potassium Clav 875 MG TAB PO SCH ×2 (08:30→20:15)
[2018-10-10] MEDS: Morphine ER 30 MG TAB PO SCH ×2 (08:30→20:14)
[2018-10-10] MEDS: Doxycycline 100 MG CAP PO SCH ×2 (08:30→20:15)
[2018-10-10] MEDS: Polyethylene Glycol 3350 17 GM Packet PO SCH (08:31)
[2018-10-10] MEDS: Morphine IR Tab 15 MG TAB PO PRN ×2 (14:08→18:20)
--- NOTE | 2018-10-10 14:38 | PRG ---
DATE OF SERVICE: 10/10/2018 SUBJECTIVE: Sg has no complaints. Apparently, there is no training of her [id number] over the weekend. She does not feel like comfortable going home with her catheter. I will discuss the above with the nurses and they will attempt to begin the education process. She has no complaints. Her pain is well controlled. OBJECTIVE: VITAL SIGNS: She is afebrile. Heart rate is 120, respiratory rate is 16, oximetry is 95%, blood pressure is 109/76. LUNGS: Show equal breath sounds. HEART: Regular rhythm. ABDOMEN: Soft. LABORATORY DATA: There is no new lab. IMPRESSION: 1. Large pleural effusion, most likely secondary to metastatic breast cancer. 2. Status post placement of a tunneled catheter on Wednesday. 3. History of lipid disorder. 4. History of asthma, which is not a clinical problem at this time. 5. History of modified radical mastectomy. PLAN: Continue supportive care. Education, the patient and her [id number]. Job ID: [id number]
[2018-10-10] MEDS: Enoxaparin Sodium 40 MG/0.4 ML SYRINGE SC SCH (20:15)
[2018-10-11] MEDS: Morphine IR Tab 15 MG TAB PO PRN ×2 (00:18→06:47)
--- NOTE | 2018-10-11 06:15 | PDOC.FM ---
- Objective MAR Reviewed: Yes Vital Signs & Weight: Vital Signs (12 hours) Temp Pulse Resp BP Pulse Ox 10/11/18 00:21 132 H 10/10/18 20:24 129 H 10/10/18 20:10 94 L 10/10/18 19:52 99.2 F 132 H 22 H 112/76 94 L 10/10/18 18:26 95 Weight Weight 97.522 kg I&O: 10/09/18 10/10/18 10/11/18 06:59 06:59 06:59 Intake Total 2720 321 900 Output Total 425 200 Balance 2720 -104 700 Result Diagrams: 10/08/18 14:34 10/06/18 06:12 <Robert Swift - Last Filed: 10/11/18 06:13> - Objective Vital Signs & Weight: Vital Signs (12 hours) Temp Pulse Resp BP Pulse Ox 10/11/18 08:00 99.6 F 129 H 20 101/67 94 L 10/11/18 00:21 132 H Weight Weight 97.522 kg I&O: 10/10/18 10/11/18 10/12/18 06:59 06:59 06:59 Intake Total 321 900 Output Total 425 200 Balance -104 700 Result Diagrams: 10/08/18 14:34 10/06/18 06:12 <Keenan Polo - Last Filed: 10/11/18 10:16> Dx/Plan (1) Pleural effusion Code(s): J90 - PLEURAL EFFUSION, NOT ELSEWHERE CLASSIFIED Status: Acute (2) Constipation due to pain medication Code(s): K59.03 - DRUG INDUCED CONSTIPATION Status: Acute (3) Intractable pain Code(s): R52 - PAIN, UNSPECIFIED Status: Acute (4) Symptomatic anemia Code(s): D64.9 - ANEMIA, UNSPECIFIED Status: Acute (5) Tachycardia Code(s): R00.0 - TACHYCARDIA, UNSPECIFIED Status: Acute (6) Breast cancer metastasized to bone Code(s): C50.919 - MALIGNANT NEOPLASM OF UNSP SITE OF UNSPECIFIED FEMALE BREAST ; C79.51 - SECONDARY MALIGNANT NEOPLASM OF BONE Status: Chronic Qualifiers: Laterality: left Qualified Code(s): C50.912 - Malignant neoplasm of unspecified site of left female breast; C79.51 - Secondary malignant neoplasm of bone (7) HTN (hypertension) Code(s): I10 - ESSENTIAL (PRIMARY) HYPERTENSION Status: Chronic - Plan Plan: This is a 38 yo female with a pmh of stage IV b breast cancer w/ mets to her pelvis, femur, and liver, as well as HTN Intractable pain 2/2 stage IV breast CA with bony metastases -Pain is better controlled with EDI ms contin BID and PRN morphine PO -Continue Bowel regimen, with the addition of movantik Acute hypoxic respiratory failure likely 2/2 pleural effusion -Pt. has had oxygen requirement since admission -Pt is still requiring oxygen to maintain sats -We will continue the processes to allow pt home O2. Pleural effusion -POD 4 PleurX cath placed by Dr. Contreras -Dr. Hodge on the case -Likely 2/2 malignancy -CT was positive for L pleural effusion, atelectasis, RLL opacities/atelectasis Symptomatic anemia, improving -Stable -Continues to be tachycardic likely 2/2 pleural effusion -Continues to have oxygen demand, improving Tachycardia -Overnight, remained elevated in the 120s -CTA limited but no obvious PT -Continue to monitor PE Constipation -Likely 2/2 narcotic use and decreased movement -Continue bowel regiment -KUB on 10/04 shows large stool burden in R colon, repeat KUB shows some positive change but not large amount of stool in left colon. We are starting movantik for opioid induced constipation Physical deconditioning -PT/OT Stage IV breast CA with bony metastases -Follows with Dr. Rico, has been notified -Address pain associated as above -Palliative care consulted, will appreciate their recommendations, does not express current desire for hospice at this time Leukopenia, stable -Pt 2/2 chemotherapy w/ WBC of 3.3 on admission. Last check was 4.7 -Continue to monitor HTN -BP has been normal during time here off medications -Continue to monitor and treat PRN Asthma -PRN albuterol Pt. will likely go home this afternoon after family is educated on how to use the Pleurx catheter. <Robert Swift - Last Filed: 10/11/18 06:13> Attending Addendum - Attending Addendum Date/Time: 10/11/18 1011 I personally evaluated the patient and discussed the management with Dr. Swift. I agree with the History, Examination, Assessment and Plan documented above with any addition or exceptions noted below. 38F with Stage IV breast cancer. Family has been instructed on how to use the PleurX catheter. Her pain is well controlled on EDI MS Contin. She will need bedside commode and wheelchair upon discharge. Palliative Care meeting scheduled with family at 1300 today. Patient has close f/u with Oncology already scheduled. Discharge this afternoon. <Keenan Polo - Last Filed: 10/11/18 10:16>
[2018-10-11 08:06] VITALS: BP 101/67; TEMP 99.6
[2018-10-11] MEDS: Amoxicillin/Potassium Clav 875 MG TAB PO SCH (08:29)
[2018-10-11] MEDS: Morphine ER 30 MG TAB PO SCH (08:29)
[2018-10-11] MEDS: Senokot S 8.6-50 MG TAB PO SCH (08:29)
[2018-10-11] MEDS: Doxycycline 100 MG CAP PO SCH (08:29)
[2018-10-11] MEDS: Polyethylene Glycol 3350 17 GM Packet PO SCH (08:30)
--- NOTE | 2018-10-11 13:49 | PRG ---
DATE OF SERVICE: 10/11/2018 SUBJECTIVE: Stephany Bettencourt done well overnight. Her and her mother gone through the education process and the mother has no concerns. OBJECTIVE: GENERAL: She is in no distress. VITAL SIGNS: Her vital signs have been stable. Her temp is 99, heart rate is 120, respiratory rate is 20, oximetry is 94, and blood pressure 101/67. LUNGS: Remarkable for equal breath sounds. HEART: Regular rhythm. ABDOMEN: Soft. IMPRESSION: 1. Metastatic breast cancer. 2. ? pleural and pulmonary involvement. 3. Resting tachycardia. This will need to be followed, but certainly could be a result of pulmonary vascular invasion with tumor or less likely thromboembolic disease. Even this had been significantly improved, some need to be monitored as an outpatient. She had a CT pulmonary angiogram on admission, but did not show thromboembolic disease. Job ID: [id number]
[2018-10-11] MEDS: Promethazine 25 MG TAB PO PRN (16:40)
--- NOTE | 2018-10-12 17:34 | DIS ---
DATE OF ADMISSION: 10/04/2018 DATE OF DISCHARGE: 10/11/2018 RESIDENT: Robert Swift DO. ADMITTING ATTENDING: Cristo Walters MD. DISCHARGE ATTENDING: Keenan Polo MD. CONSULTS: 1. Oncology, Dr. Rico. 2. Pulmonology, Dr. Hodge. 3. CV Surgery, Dr. Contreras. PROCEDURES PERFORMED: 1. CTA chest showing no obvious essential pulmonary embolism. Large left pleural effusion and adjacent atelectasis. Lower lobe peribronchial atelectatic/airspace opacities, early bronchopneumonia not excluded, widespread osseous metastases. 2. Chest x-ray showed extensive new interstitial and alveolar opacities with left hemothorax with dense opacity in the left lung base suggesting the consolidation plus collapse and/or left pleural fluid findings which are suspicious for infectious pneumonitis/aspiration. Underlying malignancy cannot be excluded. 3. KUB, right colon. She had mild gaseous distention of small bowel in abdomen. 4. KUB, moderate amount of retained stool within the colon. 5. Current chest x-ray shows left-sided chest tube in place. Additional left-sided pleural effusion, basilar atelectasis or infiltrate. 6. PleurX catheter placement. PRIMARY DIAGNOSIS: Intractable pain, secondary to stage IV breast cancer with metastases to bone and liver. SECONDARY DIAGNOSES: 1. Symptomatic anemia. 2. Constipation due to pain medication. 3. Tachycardia. 4. . 5. Hypertension. 6. Asthma. 7. Acute hypoxic respiratory failure. DISCHARGE MEDICATIONS: 1. Augmentin 875 p.o. q.12 hours for 4 days. 2. Doxycycline p.o. b.i.d. for 4 days. 3. Tylenol 1 g q.6 hours p.r.n. pain. 4. Cyclobenzaprine 10 mg p.o. t.i.d. p.r.n. pain. 5. Ibuprofen 800 mg p.o. q.8 hours p.r.n. pain. 6. MS Contin 30 mg p.o. q.12 hours. 7. q.4 hours p.r.n. pain. 8. Zofran 4 mg q.6 hours p.r.n. nausea and vomiting. 9. MiraLAX 1 packet p.o. daily. 10. Senokot 2 tablets p.o. b.i.d. DISCONTINUED MEDICATIONS: Tramadol. HISTORY OF PRESENT ILLNESS/HOSPITAL COURSE: This is a 38-year-old female, who has stage IV breast cancer with metastases to liver, pelvis, and femur, presented to the ER, where she complained of uncontrollable pain in low back and hips, became unbearable throughout the course of the midday. The patient was taking tramadol throughout the morning prior to arrival; however, the pain was unbearable and greater than 10/10. Initially, the patient was found to be tachycardic to the 130s on admission. The patient remained tachycardic throughout her stay despite fixing obvious problems including anemia and pleural effusion. EKG showed sinus tachycardia. Upon admission to the hospital, the patient was switched to MS Contin as above, and the patient's pain was brought under control. CV Surgery was consulted for PleurX catheter placement, and prior to discharge, the patient and the patient's family were taught to drain this catheter. During the patient's stay, her initial hemoglobin was 6.8. The patient received a total of 3 units, and hemoglobin remained steady at 9.6. At the time of discharge, the patient was set up with home O2, wheelchair, bedside commode. The patient required oxygen during her stay and maintained approximately 94% on 3 L nasal cannula throughout her hospitalization. DISPOSITION: Stable. DISCHARGE INSTRUCTIONS: 1. Location: Home. 2. Diet: As tolerated. 3. Activities: As tolerated. 4. Followup: With Dr. Rico on at 2:45 in the afternoon, and follow up with primary care physician in 1 to 2 weeks. Job ID: [id number]
--- NOTE | 2018-10-12 21:49 | EKG ---
Test Reason : Blood Pressure : / mmHG Vent. Rate : 125 BPM Atrial Rate : 125 BPM P-R Int : 134 ms QRS Dur : 068 ms QT Int : 288 ms P-R-T Axes : 038 004 029 degrees QTc Int : 415 ms Sinus tachycardia Cannot rule out Anterior infarct (cited on or before 10-OCT-2018) Abnormal ECG When compared with ECG of 10-OCT-2018 16:34, (Unconfirmed) No significant change was found Confirmed by Eladio RUIZ ([id number]) on 10/12/2018 9:48:58 PM Referred By: PERLA Confirmed By:Eladio RUIZ
== END 2018-10-11 17:21 | disposition home or self-care (01) | DRG 939 ==
LOC: ERS 19:41 → ERHOLD 21:13 → OBSVTOIN 21:13 → T4-B 10-05 17:39 → ONC 10-05 18:04 → T4-B 10-09 17:17
PROVIDERS: ADMIT Emergency Medicine; ATTEND Emergency Medicine
PROC: 30233N1 Transfusion of Nonautologous Red Blood Cells into Peripheral Vein, Percutaneous Approach (ICD-10-PCS; 2018-10-06)
PROC: 0W9B40Z Drainage of Left Pleural Cavity with Drainage Device, Percutaneous Endoscopic Approach (ICD-10-PCS; principal; 2018-10-07)
DX: G89.3 Neoplasm related pain (acute) (chronic) (principal); J96.01 Acute respiratory failure with hypoxia; C79.51 Secondary malignant neoplasm of bone; C78.7 Secondary malignant neoplasm of liver and intrahepatic bile duct; J91.0 Malignant pleural effusion; J45.909 Unspecified asthma, uncomplicated; I10 Essential (primary) hypertension; D64.9 Anemia, unspecified; K59.03 Drug induced constipation; D72.819 Decreased white blood cell count, unspecified; R00.0 Tachycardia, unspecified; C50.912 Malignant neoplasm of unspecified site of left female breast; Z17.0 Estrogen receptor positive status [ER+]; E78.5 Hyperlipidemia, unspecified; Z90.49 Acquired absence of other specified parts of digestive tract; Z90.12 Acquired absence of left breast and nipple
CPT/HCPCS: 36415; 36416; 36430; 71045; 71275; 74018; 80048; 80053; 81003; 81015; 82550; 84145; 85025; 85027; 86850; 86900; 86901; 87086; 93005; 93010; 96361; 96374; 96375; C1729; G8978-GP-CL; G8979-GP-CJ; G8987-GO-CJ; G8988-GO-CI; J0670; J1100; J1170; J1650; J2001; J2060; J2250; J2270; J2405; J2550; J2704; J3010; J9202; J9395; P9016; Q0162